=== PATIENT | female | born 1985 | race Two or more races ===

== ENCOUNTER → 2023-07-24 15:04 | Outpatient (BNVA) | payer OTHER, SELFPAY | PROVIDERS: PCP Internal Medicine; Visit Provider Physician Assistant Surgical ==

== ENCOUNTER 2023-09-12 08:12 | Outpatient (AMB) | payer OTHER, SELFPAY ==
[2023-09-12 14:01] VITALS: BMI 42.6
--- NOTE | 2023-09-12 14:01 | MHC.OFFVISWM ---
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*: Details: Start time: 1.50pm, End time: 2.45pm ?I spent 50 minutes speaking with the patient on the phone plus an additional 5 minutes reviewing and updating records for a total of 55 minutes HPI Comments Details: Previous weight loss efforts: self diets and exercise Business days: 4.30am-9pm, weekends: 9am-9pm Breakfast: skips Lunch: 11.25am (rice and meat) Dinner: 5pm (same as above, or fast food) Snacks: 7-8pm (cookie) Exercise: none Fluids: Coffee (1 cup/day with milk and sugar), Tea: a few days per week, soda: Regular Coca cola daily, juice: none, ETOH: 3-4/wk (Whiskey x2 or beer x6) PFSH Medical History (Updated 09/12/23 @ 14:08 by David Michelle MD) Hypothyroidism Morbid obesity Telehealth Telehealth Telehealth Platform: Telephone Location of provider rendering services: practice address Location of patient: address on file Patient Identification confirmed using: Name, : Yes Telehealth method: voice only Patient verbally consented to treatment: Yes Patient verbally consented to billing insurance company: Yes Patient informed of any privacy concerns related to visit: Yes Minutes spent on Phone/Video with Pt.: 57 Assessment & Plan Assessment & Plan (1) Morbid obesity: Code(s): E66.01 - Morbid (severe) obesity due to excess calories Category: Medical Plan: 1.? Plan for lap sleeve gastrectomy. If diaphragmatic or ventral hernias are present at time of surgery, these will be repaired laparoscopically as well. Risks and complications were discussed in detail including possible conversion to an open procedure, anastomotic leak, bleeding requiring transfusion, small bowel obstruction, , DVT and pulmonary embolism, cardiac, or pulmonary complications, as fci complications such as anastomotic ulcer, insufficient weight loss and vitamin deficiencies. I emphasized the importance of close follow-up, adherence to instructions and good communication. 2. Nutritional counseling. A) Business days: Start with 2 CELEBRATE REBUILD protein ([facility]) shakes (ONE scoop EACH in 8oz low fat unsweetened almond milk each) at 6am-8am and 9am-11am, 2 protein bars (CELEBRATE protein bars, buy at [facility] [place]) at 12pm-2pm and 3pm-5pm, dinner at 6pm (10 forks of protein and 10 forks of salad/vegetables) AND HALF protein bar after dinner at 8pm-9pm. So you do 2 protein shakes, 2.5 protein bars and one meal per day. B) Off days: Start with 2 CELEBRATE REBUILD protein ([facility]) shakes (ONE scoop EACH in 8oz low fat unsweetened almond milk each) at 10am-12pm and 1pm-3pm, 1 protein bar (CELEBRATE protein bars, [email or web address]) at 4pm-6pm, dinner at 7pm (10 forks of protein and 10 forks of salad/vegetables). So you do 2 protein shakes, 1 protein bar and one meal per day. Meal to include lean meat (beef, fish, pork, turkey, chicken), or gibraltarian yogurt, or egg whites, or beans with a salad with olive oil and fruits (berries, pears, apples, kiwi). Avoid salt, breads, potatoes, rice, pasta, desserts. 3. Each shake would be drunk slowly, like coffee in a period of 2 hours. 4. Cut each bar in 4 pieces and eat each piece in 30min ?to make each bar last 2 hours. 5. I emphasized the importance of measuring accurately the food portion and measure it when serving the food in plate 6. The meal portions include 10 full-size forks of meat and 10 full-size forks of salad. You always eat the meat portion but you can replace up to 5 forks for salad/vegetables with rice, potatoes or pasta, or a fruit ?if you like. The less you do it the better weight loss will be. 7. One full-size fork is what it can be scooped on the fork without falling aside and not what can be bit with the fork. Use regular forks like those you find in a typical restaurant. 8.? Please send me weight measurements as soon as possible and then once a week. Always include your diet and exercise plan. 9. Start walking outside daily, tracking calories with a goal of 300 calories per day, daily. Goal is to burn 2000 calories per week on exercise, which means either 300 calories daily, or 400 calories 5 days per week, or 500 calories 4 days per week, or 650 calories 3 days per week. 10. The best choice would be to purchase a stationary bike, elliptical or treadmill at home that can track calories. Let me know if you do so I can give you an exercise plan. 11.?It is important of avoiding and for at least 18 months postoperatively and has been discussed at the infosession. 12. Goal is to lose at least 1.5-2lbs per week 13. Goal to lose 10% of your weight before surgery, which is about 25lbs. Ultimate weight goal: 223lbs before surgery 14. Please follow the diet plan exactly without any change. If you don't like something about the plan or you feel hungry you need to communicate with me so I can help you revise the plan. You should not change the plan yourself. Orders: Orders H Pylori Breath Test Today E03.9 - Hypothyroidism, unspecified, E66.01 - Morbid (severe) obesity due to excess calories, F41.9 - Anxiety disorder, unspecified Lipid Panel Today E03.9 - Hypothyroidism, unspecified, E66.01 - Morbid (severe) obesity due to excess calories, F41.9 - Anxiety disorder, unspecified IRON PROFILE Today E03.9 - Hypothyroidism, unspecified, E66.01 - Morbid (severe) obesity due to excess calories, F41.9 - Anxiety disorder, unspecified Comprehensive Met. Panel Today E03.9 - Hypothyroidism, unspecified, E66.01 - Morbid (severe) obesity due to excess calories, F41.9 - Anxiety disorder, unspecified Zinc Today E03.9 - Hypothyroidism, unspecified, E66.01 - Morbid (severe) obesity due to excess calories, F41.9 - Anxiety disorder, unspecified C Reactive Protein Today E03.9 - Hypothyroidism, unspecified, E66.01 - Morbid (severe) obesity due to excess calories, F41.9 - Anxiety disorder, unspecified Vitamin A Today E03.9 - Hypothyroidism, unspecified, E66.01 - Morbid (severe) obesity due to excess calories, F41.9 - Anxiety disorder, unspecified TSH reflex Free T4 Today E03.9 - Hypothyroidism, unspecified, E66.01 - Morbid (severe) obesity due to excess calories, F41.9 - Anxiety disorder, unspecified Vitamin D 25-OH Total Today E03.9 - Hypothyroidism, unspecified, E66.01 - Morbid (severe) obesity due to excess calories, F41.9 - Anxiety disorder, unspecified US abdomen comp w elastography Today E03.9 - Hypothyroidism, unspecified, E66.01 - Morbid (severe) obesity due to excess calories, F41.9 - Anxiety disorder, unspecified FL upper GI w air Today E03.9 - Hypothyroidism, unspecified, E66.01 - Morbid (severe) obesity due to excess calories, F41.9 - Anxiety disorder, unspecified Insulin Today E03.9 - Hypothyroidism, unspecified, E66.01 - Morbid (severe) obesity due to excess calories, F41.9 - Anxiety disorder, unspecified Hemoglobin A1c Today E03.9 - Hypothyroidism, unspecified, E66.01 - Morbid (severe) obesity due to excess calories, F41.9 - Anxiety disorder, unspecified Complete Blood Count Auto Diff Today E03.9 - Hypothyroidism, unspecified, E66.01 - Morbid (severe) obesity due to excess calories, F41.9 - Anxiety disorder, unspecified Vitamin B12 and Folate Today E03.9 - Hypothyroidism, unspecified, E66.01 - Morbid (severe) obesity due to excess calories, F41.9 - Anxiety disorder, unspecified Vitamin B1 Today E03.9 - Hypothyroidism, unspecified, E66.01 - Morbid (severe) obesity due to excess calories, F41.9 - Anxiety disorder, unspecified Ferritin Today E03.9 - Hypothyroidism, unspecified, E66.01 - Morbid (severe) obesity due to excess calories, F41.9 - Anxiety disorder, unspecified XR chest 2V Today E03.9 - Hypothyroidism, unspecified, E66.01 - Morbid (severe) obesity due to excess calories, F41.9 - Anxiety disorder, unspecified ECG 12 lead EKG Today E03.9 - Hypothyroidism, unspecified, E66.01 - Morbid (severe) obesity due to excess calories, F41.9 - Anxiety disorder, unspecified Referrals Behavioral Health Referral E03.9 - Hypothyroidism, unspecified, E66.01 - Morbid (severe) obesity due to excess calories, F41.9 - Anxiety disorder, unspecified
== END 2023-09-12 14:46 | disposition home or self-care (01) ==
LOC: HO.HBS 08:12
PROVIDERS: PCP Internal Medicine; Visit Provider Surgery
DX: E66.01 Morbid (severe) obesity due to excess calories (principal)
CPT/HCPCS: 99214

== ENCOUNTER → 2023-09-12 08:12 | Outpatient (BNVA) | payer OTHER, SELFPAY | PROVIDERS: PCP Internal Medicine; Visit Provider Surgery ==

== ENCOUNTER 2023-09-15 07:00 | Outpatient (REF) | payer OTHER, SELFPAY ==
--- NOTE | ~2023-09-15 | XR_ITS ---
EXAMINATION: XR CHEST CLINICAL INFORMATION: Moderate severe obesity due to excess calories. COMPARISON: None available. TECHNIQUE: 2 views of the chest were obtained. FINDINGS: There is no gross pneumothorax. Cardiac silhouette borderline enlarged. No pleural effusion. No focal consolidation to suggest pneumonia. XR/XR chest 2V IMPRESSION: Cardiac silhouette borderline enlarged.
[2023-09-15 07:18] LABS: MANUAL DIFF FLAG NO
--- NOTE | 2023-09-15 07:41 | ECG_ITS ---
Test Reason : obesity Blood Pressure : / mmHG Vent. Rate : 062 BPM Atrial Rate : 062 BPM P-R Int : 148 ms QRS Dur : 072 ms QT Int : 408 ms P-R-T Axes : 043 022 022 degrees QTc Int : 414 ms Normal sinus rhythm with sinus arrhythmia Low voltage QRS Borderline ECG No previous ECGs available Referred By: David Michelle Electronically Signed By:REI MOORE MD
[2023-09-15 07:50] LABS: Basophils Percent Auto 0.6 % (0-2); Eosinophils Absolute Auto 0.2 X10*3/uL (0.0-0.4); Hematocrit 36.1 % (37.0-47.0); Hemoglobin 12.3 g/dl (12.0-16.0); Imm Gran Abs Auto 0.01 X10*3/uL (0.00-0.03); Imm Gran Pct Auto 0.2 % (0.0-0.4); Lymphocytes Absolute Auto 2.1 X10*3/uL (1.2-4.9); Lymphocytes Percent Auto 41.7 % (20-40); Mean Corpuscular HGB Conc 34.1 g/dl (31.0-35.0); Mean Corpuscular Hemoglobin 29.5 pg (27.0-33.0); Mean Corpuscular Volume 86.6 fL (80.0-98.0); Mean Platelet Volume 9.5 fL (9.4-12.3); Monocytes Absolute Auto 0.4 X10*3/uL (0.1-1.2); Monocytes Percent Auto 8.3 % (2-11); Neutrophils Absolute Auto 2.3 x10*3/uL (2.0-8.3); Neutrophils Percent Auto 46.2 % (45-73); Platelet Count 254 X10*3/uL (160-400); Red Blood Count 4.17 X10*6/uL (4.20-5.50); Red Cell Distribution Width 12.3 % (11.0-16.0); White Blood Count 4.9 X10*3/uL (4.8-10.8)
[2023-09-15 07:56] LABS: Estimated Average Glucose 103 mg/dL; Hemoglobin A1c % 5.2 % (<6.0)
[2023-09-15 08:29] LABS: Alanine Aminotransferase 13 U/L (0-31); Albumin Level 3.8 g/dL (3.5-5.0); Alkaline Phosphatase 71 U/L (39-117); Anion Gap 13 (12-20); Aspartate Amino Transferase 19 U/L (5-31); Bilirubin Total 0.5 mg/dL (0.0-1.0); Blood Urea Nitrogen 10 mg/dL (9-16); C Reactive Protein 0.77 mg/dL (< or = 0.50); Carbon Dioxide 25 mmol/L (22-29); Chloride 104 mmol/L (96-108); Cholesterol 151 mg/dL (<200); Estimated Glomerular Filt Rate > 60; Glucose Random 102 mg/dL (60-115); HDL Cholesterol 46 mg/dL (>40); Iron 136 mcg/dL (30-160); LDL Cholesterol Calculated 86 mg/dL (<100); Percent Iron Saturation 47 % (15-50); Potassium 3.2 mmol/L (3.3-5.1); Sodium 139 mmol/L (135-145); Total Iron Binding Capacity 287 mcg/dL (228-428); Total Protein 7.5 g/dL (6.5-8.0); Triglycerides 96 mg/dL (<150); Unsaturated Iron Binding 151 ug/dL
[2023-09-15 08:52] LABS: Ferritin 119 ng/mL (10-122); Insulin 6 uU/mL (2-29); TSH reflex Free T4 3.35 uIU/mL (0.32-4.0); Vitamin D 25-OH Total 23.5 ng/mL (>30)
[2023-09-15 08:56] LABS: Folate 10.1 ng/mL (> or = 4.0); Vitamin B12 452 pg/mL (200-900)
[2023-09-18 19:19] LABS: Vitamin A 35 mcg/dL (38-98)
[2023-09-19 01:38] LABS: Zinc 63 mcg/dL (60-130)
[2023-09-20 11:48] LABS: Vitamin B1 7 nmol/L (8-30)
== END 2023-09-15 07:01 | disposition home or self-care (01) ==
LOC: HO.XRAY 07:00
PROVIDERS: PCP Internal Medicine; Visit Provider Surgery
DX: E66.01 Morbid (severe) obesity due to excess calories (principal); E03.9 Hypothyroidism, unspecified; F41.9 Anxiety disorder, unspecified
CPT/HCPCS: 36415; 71046; 80053; 80061; 82306; 82607; 82728; 82746; 83036; 83525; 83540; 84425; 84443; 84590; 84630; 85025; 86140; 93005

== ENCOUNTER → 2023-09-15 07:41 | Outpatient (BNV) | payer OTHER, SELFPAY | PROVIDERS: PCP Internal Medicine; Visit Provider Internal Medicine Cardiovascular Disease | DX: R94.31 Abnormal electrocardiogram [ECG] [EKG] (principal) | CPT/HCPCS: 93010 ==

== ENCOUNTER 2023-10-02 10:24 | Outpatient (REF) | payer OTHER, SELFPAY ==
--- NOTE | ~2023-10-02 | US_ITS ---
EXAMINATION: US COMPLETE ABDOMEN WITH LIVER ELASTOGRAPHY CLINICAL INFORMATION: Morbid obesity. COMPARISON: None available. TECHNIQUE: Real-time imaging of the abdominal viscera. Noninvasive ultrasound liver fibrosis assessment is performed using Sarthak ElastPQ point quantification shear wave elastography (2D-SWE) with a C5-2 MHz transducer. Multiple elastography samples are obtained. FINDINGS: PANCREAS: Normal. The visualized pancreatic head and body are normal in appearance. The remainder of the pancreas is obscured from visualization by the overlying bowel gas. ABDOMINAL AORTA: The proximal, middle, and distal aortic segments are normal in caliber. INFERIOR VENA CAVA: Visualized portions are normal. LIVER: Normal. The liver demonstrates normal size, contour and echogenicity. No focal lesion or intrahepatic biliary duct dilatation. The right lobe measures 16.3 cm in length. The left lobe measures 11.1 cm in length. Portal flow is towards the liver (hepatopetal). Shear wave liver elastography median stiffness is 1.30 m/s (reference: normal median stiffness is 1.3 m/s or less). IQR/median stiffness to assess sampling precision is 0.09 (reference: good quality data set is IQR/median stiffness of 0.15 or less). GALLBLADDER: Normal. The gallbladder is physiologically distended without evidence of stones, sludge, polyps, wall thickening or pericholecystic fluid. COMMON BILE DUCT: Normal in caliber measuring 0.3 cm in diameter. RIGHT KIDNEY: Normal. No hydronephrosis. No renal calculi or focal parenchymal lesions. The kidney measures 12.0 cm in maximum dimension. LEFT KIDNEY: Normal. No hydronephrosis. No renal calculi or focal parenchymal lesions. The kidney measures 9.9 cm in maximum dimension. SPLEEN: Normal. The spleen measures 9.7 cm in maximum dimension. FREE FLUID: None. US/US abdomen comp w elastography IMPRESSION: Liver elastography: Measurements are consistent with a high probability of normal liver stiffness. REFERENCE: Society of Radiologists in Ultrasound Liver Stiffness Thresholds (2020): LIVER STIFFNESS THRESHOLDS: *Liver Stiffness equal or less than 1.3 m/s: High probability of being normal. *Liver Stiffness less than 1.7 m/s: In the absence of other known clinical signs, rules out compensated advanced chronic liver disease. *Liver Stiffness 1.7-2.1 m/s: Suggestive of compensated advanced chronic liver disease but need further test for confirmation. *Liver Stiffness over 2.1 m/s: Rules in compensated advanced chronic liver disease. *Liver Stiffness over 2.4 m/s: Suggestive of clinically significant portal hypertension. QUALITY OF DATA SET: *IQR/Median value equal or less than 0.15 implies a quality data set. *IQR/Median value over 0.15 implies a poor quality data set. SIGNIFICANT CHANGE FROM PRIOR EXAM: Significant change if liver stiffness measurement is 10% or greater from prior exam. OTHER CONSIDERATIONS: The stage of liver fibrosis may be overestimated in the setting of acute hepatitis, liver inflammation, elevated liver function tests, hepatic vascular congestion, obstructive cholestasis, non-fasting state, and infiltrative diseases such as amyloidosis and lymphoma. In some patients with NAFLD, the liver stiffness thresholds for compensated advanced chronic liver disease may be lower. In causes other than viral hepatitis and NAFLD, liver stiffness thresholds are not well established.
== END 2023-10-02 10:25 | disposition home or self-care (01) ==
LOC: HO.US 10:24
PROVIDERS: PCP Internal Medicine; Visit Provider Surgery
DX: E66.01 Morbid (severe) obesity due to excess calories (principal); E03.9 Hypothyroidism, unspecified; F41.9 Anxiety disorder, unspecified
CPT/HCPCS: 76700; 76981

== ENCOUNTER 2023-10-08 13:00 | Outpatient (AMB) | payer OTHER, SELFPAY ==
--- NOTE | 2023-10-08 13:03 | MHC.WMTHER ---
Intake Intake Visit Reasons: VIDEO Intake Allergies No Known Allergies Allergy (Verified 09/12/23 14:04) [facility] Medical History (Updated 09/27/23 @ 10:21 by David Michelle MD) Hypothyroidism Morbid obesity Behavioral Health Assessment Weight Management Therapy Therapy Notes Details Pt is a 38 year old , Maori speaking female who presents for assessment for the surgical Weight management program. PT reports she has medical issues affected by her weight and is looking for a long-term solution for her obesity and life style issues. PT reported been in counseling briefly a year ago due to sx of anxiety, however symptoms resolved after couple meetings with therapist leading her to stop services. PT denies any past Hx of crisis or hospitalization and also denies any risk concerns around self-harm/other-harm. There is no major concerns around substance use besides social alcohol use. There are minimal concerns around stress/emotional-eating, and scores from BES suggest minimal risk for binge eating behavior. PHQ- scores also showed no active symptoms/concerns with depression. Mental status exam is withing normal limits, suggesting person's functioning is not impaired. At this time patient is cleared from the behavioral health standpoint. She will be seen again 4-8 weeks post-op for support. Presenting Concerns Referral Source Referred to the program by friends. She sees Dr. Alejo who referred her for assessment. Reason for referral Completion of behavioral health assessment as part of process for weight-loss surgery. Precipitating Event Obesity, thyroid issues. Living Situation Current Living Situation Rent At risk of losing current housing? No Satisfied with current living situation? Yes Comments Pt lives with a friend. Food/Weight/Diet Expectations of change The initial goal is to lose 10% of her weight before surgery, which is about 25 lbs. Ultimate weight goal: 223lbs before surgery. She wants to be at a healthy weight and have an active lifestyle. History/Relationship with food PT reports she likes to eat, and enjoys eating out. At times she finds herself praising her with food or eating more when stressed. For example if she's sad she might cook her favorite food to uplift her mood. Example of meals before starting the program: Breakfast: skip or coffee. Sometimes chips. Lunch: rice with meat. PM snack: none Dinner: @6pm. Take out (burger kind, [place], Etc) or homemade, -style meals. late snack: candy, chocolate. History/Relationship with weight Pt reports she was always in a healthy weight, never obese or overweight in childhood. In the last 10 years, 170Lbs was the lowest weight, and 256 Lbs was her highest weight. History/Relationship with dieting She has tried multiple diets, visits, and treatments with a fuel cell assembler. Tries diets for about 3 months at the time but ends up gaining all weight back once is back to old habits. Had a gym membership 5 years ago and just started using it since started the program. Binge Eating Do you frequently eat large amounts of food in short periods of time, not feeling physically hungry? No Do you feel out of control when you eat a large amount of food in a short period of time? Yes Do you eat large amounts of food rapidly and typically alone? Yes Night Eating Do you wake up at least once during the night to eat? No If you wake up in the night, do you find that it is necessary to eat something in order to fall back asleep? No Do you have little or no appetite in the morning and feel very hungry in the evening, often overeating between dinner and when you go to bed? Yes Social History Family history and relationship PT was in a long-term relationship for 13 years. Currently single. Her parents are alive, Has 2 siblings. PT reports she is close to her family even though most of her family lives in [place]. 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 Developmental history and status None reported. Social support Family and close friends. Community support None reported. Congregational/Spirituality None reported Cultural/Ethnic information PT was born and raised in [place]. Maori speaking. PT has been in [place] for the past 12 years. Legal Involvement and History Current or historical involvement with the legal system? None reported. Education Highest grade completed Did not finish 12, and got her GED later. Preferred learning style Learn by doing and Visual Currently enrolled in educational program? No Interested in further educational program? No Educational Interests/Skills would like to get a cosmetology license and become a medtronics technician. 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 ) Wants help to find employment? No Meaningful activities go out with friends, watch Tv. Financial Situation Describe current financial situation Comfortable Financial assistance? None Service Service? No Mental Health and Addiction Treatment Current/Past substance abuse? Yes Comments -Haven't drink in 2 months. Before that was drinking every weekend (Frid or Sat) when going out after work with friends. Was drinking 3 drinks of whisky on the rocks and 1 beer. - Smoke: never - Denies edibles or any other cannabis product. Current/Past addictive behavior concerns? No (Uses scratch tickets ocasionally.) Psychiatric history 1 year ago she went to counseling for a couple of weeks due to symptoms of anxiety (nausea, dizziness, thoughts around , desperation, overthinking, mild panic-like Sx). She stopped services as she was doing better. Her PCP prescribes her Hydroxyzine 10Ms at bedtime as needed for anxiety. She has not used the med in about 6 months. Denies ever being in crisis and/or inpatient for BH, no history of current SI/SA/HI/CUADRA reported. Also, denies any safety concerns around self-harm or other harm. Medical and Physical Health Summary Additional Medical History not covered in history None Sexual History concerns None Physical exam in the last year? Yes Pain Screening Current pain? No Pain in the last few months? No Medications Is the patient compliant with medications? Yes Does the patient have Moreno Guardian in place? Not applicable Does the patient use complimentary health approaches? No Trauma/Abuse History History of trauma? No Questionnaires PHQ-9 Over the last 2 weeks, how often have you been bothered by any of the following problems? 1. Little interest or pleasure in doing things: not at all 2. Feeling down, depressed, or hopeless: not at all 3. Trouble falling or staying asleep, or sleeping too much: not at all 4. Feeling tired or having little energy: several days 5. Poor appetite or overeating: not at all 6. Feeling bad about yourself - or that you are a failure or have let yourself or your family down: not at all 7. Trouble concentrating on things, such as reading the newspaper or watching television: not at all 8. Moving or speaking so slowly that other people could have noticed. Or the opposite - being so fidgety or restless that you have been moving around a lot more than usual: not at all 9. Thoughts that you would be better off or of hurting yourself in some way: not at all Total score: 1 Depression Screening Interpretation: Negative Depression Screening Done: Yes 81321 - PHQ-9 Billing: Yes (Previous done at initial visit - scored 6. ) Source: Developed by Drs. Jordan Angel, Nitza Macdonald, Felton Govea and colleagues, with an educational endy from [employer]. Binge Eating Scale Group 1 A. I don't feel self-conscious about my wt. or body size when I'm with others. B. I feel concerned about how I look to others, but it normally does not make me fell disappointed with myself C. I do get self-conscious about my appearance and wt. which makes me feel disappointed in myself. D. I feel very self-conscious about my wt. and frequently I feel intense shame and disgust for myself. I try to avoid social contacts because of my self-consciousness. Response Group 1: C Group 2 A. I don't have any difficulty eating slowly in the proper manner. B. Although I seem to gobble down foods, I don't end up feeling stuffed because of eating to much. C. At times, I tend to eat quickly and then, I feel uncomfortably full afterwards. D. I have the habit of bolting down my food, without really chewing it. When this happens I usually feel uncomfortably stuffed because I've eaten to much. Response Group 2: C Group 3 A. I feel capable to control my eating urges when I want to. B. I feel like I have failed to control my eating more than the average person. C. I feel utterly helpless when it comes to feeling in control of my eating urges. D. Because I feel so helpless about controlling my eating I have become very desperate about trying to get control. Response Group 3: A Group 4 A. I don't have the habit of eating when I'm bored. B. I sometimes eat when I'm bored, but often I'm able to get busy and get my mind off food. C. I have a regular habit of eating when I'm bored, but occasionally, I can use some other activity to get my mind off eating. D. I have a strong habit of eating when I'm bored. Nothing seems to help me breath the habit. Response Group 4: A Group 5 A. I'm usually physically hungry when I eat something. B. Occasionally, I eat something on impulse even though I really am not hungry. C. I have the regular habit of eating foods, that I might not really enjoy, to satisfy a hungry feeling even though physically, I don't need the food. D. Although I'm not physically hungry, I get a hungry feeling in my mouth that only seems to be satisfied when I eat a food, like sandwich, that fills my mouth. Sometimes, when I eat the food to satisfy my mouth hunger, I then spit the food out so I won't gain weight. Response Group 5: B Group 6 A. I don't feel any guilt or self-hate after I overeat. B. After I overeat, occasionally I feel guilt or self-hate. C. Almost all the time I experience strong guilt or self-hate after I overeat. Response Group 6: B Group 7 A. I don't lose total control of my eating when dieting even after periods when I overeat. B. Sometimes when I eat a forbidden food on a diet, I feel like I blew it and eat even more. C. Frequently, I have the habit of saying to myself, I've blown it now, why not go all the way, when I overeat on a diet. When that happens I eat more. D. I have a regular habit of starting a strict diets for myself but I break the diets by going on an eating binge. My life seems to be either a feast or famine. Response Group 7: A Group 8 A. I rarely eat so much food that I feel uncomfortably stuffed afterwards. B. Usually about once a month, I each such a quantity of food, I end up feeling very stuffed. C. I have regular periods during the month when I eat large amounts of food, either at mealtime or at snacks. D. I eat so much food that I regularly feel quite uncomfortable after eating and sometimes a bit nauseous. Response Group 8: C Group 9 A. My level of calorie intake does not go up very high or go down very low on a regular basis. B. Sometimes after I overeat, I will try to reduce my caloric intake to almost nothing to compensate for the excess calories I've eaten. C. I have a regular habit of overeating during the night. It seems that my routine is not to be hungry in the morning but overeat in the evening. D. In my adult years, I have had week-long periods where I practically starve myself. This follows periods when I overeat. It seems I live a life of either feast or famine. Response Group 9: A Group 10 A. I usually am able to stop eating when I want to. I know when enough is enough. B. Every so often, I experience a compulsion to eat which I can't seem to control. C. Frequently, I experience strong urges to eat which I seem unable to control, but at other times I can control my eating urges. D. I feel incapable of controlling urges to eat. I have a fear of not being able to stop eating voluntarily. Response Group 10: C Group 11 A. I don't have any problem stopping eating when I feel full. B. I usually can stop eating when I feel full but occasionally overeat leaving me feeling uncomfortably stuffed. C. I have a problem stopping eating once I start and usually I feel uncomfortably stuffed after I eat a meal. D. Because I have a problem not being able to stop eating when I want, I sometimes have to induce vomiting to relieve my stuffed feeling. Response Group 11: B Group 12 A. I seem to eat just as much when I'm with others, Family social gatherings as when I'm by myself. B. Sometimes, when I'm with other persons, I don't eat as much as I want to eat because I'm self-conscious about my eating. C. Frequently, I eat only a small amount of food when others are present, because I'm very embarrassed about my eating. D. I feel so ashamed about overeating that I pick times to overeat when I know no one will see me. I feel like a closet eater. Response Group 12: A Group 13 A. I eat three meals a day with only an occasional between meal snack. B. I eat 3 meals a day, but I also normally snack between meals. C. When I am snacking heavily, I get in the habit of skipping regular meals. D. There are regular periods when I seem to be continually eating, with no planned meals. Response Group 13: C Group 14 A. I don't think much about trying to control unwanted eating urges. B. At least some of the time, I feel my thoughts are pre-occupied with trying to control my eating urges. C. I feel that frequently I spend much time thinking about how much I ate or about trying not to eat anymore. D. It seems to me that most of my waking hours are pre-occupied by thoughts about eating or not eating. I feel like I'm constantly struggling not to eat. Response Group 14: A Group 15 A. I don't think about food a great deal. B. I have strong craving for food but they last only for brief periods of time. C. I have days when I can't seem to think about anything else but food. D. Most of my days seem to be pre-occupied with thoughts about food. I feel like I live to eat. Response Group 15: A Group 16 A. I usually know whether or not I'm physically hungry. I take the right portion of food to satisfy me. B. Occasionally, I feel uncertain about knowing whether or not I'm physically hungry. A these times it's hard to know how much food I should take to satisfy me. C. Even though I might know how many calories I should eat, I don't have any idea what is a normal amount of food for me. 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 The patient has been cleared from BH standpoint and will not require a follow up before surgery. Clinician has advised client about available resources if ever in need to access additional support and has encourage client to participate in post-op groups. Next encounter: 4-8 weeks post-op. Telehealth Telehealth Telehealth Platform: [facility] Location of provider rendering services: other Location of patient: address on file Patient Identification confirmed using: Name, : Yes Telehealth method: voice only Patient verbally consented to treatment: Yes Patient verbally consented to billing insurance company: Yes Patient informed of any privacy concerns related to visit: No Minutes spent on Phone/Video with Pt.: 60 Coding Level of Care Code New Pt Tele Psytx >53 mins ([id number]) Patient Type New Diagnoses Adjustment disorder with anxiety F43.22 Time Spent (min) 60
== END 2023-10-08 13:54 | disposition home or self-care (01) ==
LOC: HO.HBST 13:39
PROVIDERS: PCP Internal Medicine; Visit Provider Counselor Mental Health
DX: F43.22 Adjustment disorder with anxiety (principal)
CPT/HCPCS: 90837

== ENCOUNTER → 2023-10-08 13:00 | Outpatient (BNVA) | payer OTHER, SELFPAY | PROVIDERS: PCP Internal Medicine; Visit Provider Counselor Mental Health ==

== ENCOUNTER 2023-10-22 08:48 | Day surgery (SDC) | payer OTHER, SELFPAY ==
[2023-10-17 14:50] VITALS: BMI 42.6
--- NOTE | 2023-10-20 12:24 | HO.ANESPROP2 ---
Documented by User: Marialuisa Miranda NP 10/20/23 12:24 HPI - Anesthesia Eval Consult details Narrative: 38yo F for Upper Endoscopy PMFSH Active Problems Active Problems: All Active Problems Vitamin B1 deficiency (Acute) Cardiomegaly (Acute) Vitamin A deficiency (Acute) Vitamin D deficiency (Acute) Hypothyroidism (Acute) Morbid obesity (Acute) Past Medical History Medical History Hypothyroidism Morbid obesity Surgical History Surgical History Surgical history unknown Social History Social History Patient Tobacco Use Status: Never used Tobacco Use of substances other than those prescribed or required for medical reasons: No Are you DNR?: No Advance Directives: No Advance Directives Information Provided: Yes Meds Allergies Allergy/AdvReac Type Severity Reaction Status Date / Time No Known Allergies Allergy Verified 10/22/23 09:45 Home Medications ?Medication ?Instructions ?Recorded ?Confirmed ?Last Taken ?Type hydroxyzine HCl 10 mg tablet 10 mg PO BEDTIME 07/25/23 10/17/23 Unknown History levothyroxine 125 mcg tablet 125 mcg PO DAILY 07/25/23 10/22/23 10/21/23 History Exam Height,Weight and Vital Signs: Height 5 ft 4 in Weight 112.491 kg Assessment and Plan Assessment Anesthesia Assessment: Chart Reviewed Documented by User: Nu Gregorio MD 10/22/23 12:00 PMF Past Medical History Medical History Hypothyroidism Morbid obesity Surgical History Surgical History Surgical history unknown History of Problems with Anesthesia: No Social History Social History Patient Tobacco Use Status: Never used Tobacco Use of substances other than those prescribed or required for medical reasons: No Are you DNR?: No Advance Directives: No Advance Directives Information Provided: Yes Meds Allergies Allergy/AdvReac Type Severity Reaction Status Date / Time No Known Allergies Allergy Verified 10/22/23 09:45 Home Medications ?Medication ?Instructions ?Recorded ?Confirmed ?Last Taken ?Type hydroxyzine HCl 10 mg tablet 10 mg PO BEDTIME 07/25/23 10/17/23 Unknown History levothyroxine 125 mcg tablet 125 mcg PO DAILY 07/25/23 10/22/23 10/21/23 History Exam Airway Mallampati Class: II TM Dist: >3cm Neck ROM: Full Loose/Missing/Broken Teeth: No Heart: RRR Lungs: CTA Assessment and Plan Assessment Anesthesia Assessment: Anesthesia Plan Discussed Final Anesthetic Review History of Problems with Anesthesia: No NPO: Yes ASA Class: III Final Preanesthetic Review: Meds/Allgs Chart Reviewed, Consent Obtained/Reviewed and Anes Risks/Benef Reviewed Patient Risk: Intermediate Procedure Risk: Intermediate Anesthetic Plan Anesthetic Plan: MAC: Disposition: Standard PACU
[2023-10-22 10:17] VITALS: BP 140/74; PULSE 65; RESP 16; TEMP 36.4; O2SAT 99
[2023-10-22] MEDS: Lactated Ringers 1,000 ML 80 ML IVCONT (10:18)
[2023-10-22 10:26] LABS: UPreg QC Valid YES; Urine Pregnancy NEGATIVE (NEGATIVE)
--- NOTE | 2023-10-22 10:34 | P.HPSUR_ITS ---
Pre-Procedural Eval Section A - 24 Hr Update-Section A only Date of Service: 10/22/23 The patient is an INPATIENT: No The patient has been examined within 24 hours of the surgical procedure. The History & Physical has been completed within 30 days and I have reviewed it.: Yes Section B - Complete if H&P > 30 days Chief Complaint: obesity Details of Present Illness: GERD Relevant Family History (Specify if Yes): No Relevant Social History: None Present Medications: None Medical History: No relevant PMH History of Previous Operations: No relevant previous surgery Allergies: Allergies Allergy/AdvReac Type Severity Reaction Status Date / Time No Known Allergies Allergy Verified 10/22/23 09:45 Review of Systems Sugical H&P ROS: Negative: Constitution, Cardiovascular, Respiratory, N eurological, Psychiatric, Hem-Onc, Allergic/Immunologic, Gastrointestinal, Genitourinary, Musculoskeletal, Integumentary, Endocrine and Eyes/Ears/Nose/Throat Exam Surgical H&P Exam: Normal: HEENT, Normal: Heart, Normal: Lungs, Normal: Extremities, Normal: Abdomen, Normal: Skin and Normal: Neurological Plan Diagnosis/Plan: Unchanged (EGD to assess etiology of GERD. Risks of bleeding and perforation were discussed with the patient and he is in agreement with the plan.) I have reviewed the history and physical and performed a pertinent physical examination on my patient. No changes have occurred unless specified. Time Spent With Patient Time: Total time managing care of this patient today ____ minutes.
--- NOTE | 2023-10-22 10:35 | P.BOP_ITS ---
Brief Operative Note Date of Service: 10/22/23 Pre-op diagnosis: GERD Post-op diagnosis: same Procedure: PROCEDURE DATE: 10/22/23 PREOPERATIVE DIAGNOSIS: GERD POSTOPERATIVE DIAGNOSIS: ?Same as above. 1) Normal endoscopy PROCEDURE: Bdwmldjn-ohmjbe-ynwdwgqkgnol with biopsies Surgeon: Tayler Michelle M.D.. Ph.D. Professor Of Medicine: None ? Anesthesia: IV sedation Estimated blood loss: ?Minimal FINDINGS AND PROCEDURE: ? OPERATIVE INDICATIONS: ?The patient is a 38 year old female known to me who is interested in bariatric surgery. The patient has GERD. Based on this information I recommended an upper endoscopy to evaluate the patient's symptoms. Risks and complications of the surgery were discussed with the patient in advance particularly the possibility of perforation or bleeding that may require surgical intervention. The patient understood the risks and was in agreement with the plan. ? PROCEDURE: After informed consent was obtained by the patient, the patient was ?transferred to the Operating Room and was placed in the supine position.? After successful induction of IV sedation, a mouth block was inserted and the patient was placed in the left lateral decubitus position. An upper endoscopy was performed next, the oropharynx and esophagus appeared within the normal limits. There was no hiatal hernia. The z-line was smooth. Two biopsies were obtained from the distal esophagus 2-3 cm proximal to the GE junction and two additional biopsies from the GE junction. The stomach was entered and it appeared to be of normal size. There was no gastritis. There was no stricture or ulcer. A biopsy was obtained from the gastric fundus and antrum. No significant bleeding was noted from any of the biopsy sites. Retroflexion of the scope revealed a normal GE junction. The scope was then advanced into the duodenum which appeared to be normal as well. At that point the duodenum ?and the stomach were decompressed and the scope was withdrawn from the patient's mouth. The patient extubated and was transferred in stable condition to the Recovery Room for further care. I was present and performed all steps of the procedure. There were no residents to assist with this case. Baljinder Michelle M.D., Ph.D. Surgeon: David Michelle MD Anesthesia: MAC Was an Professor Of Medicine used for this Procedure?: No Estimated blood loss (mL): 0 IV fluids (mL): 400 Urine output (mL): 0 (No Hughes to record output) Pathology: other (1) antrum x1, 2) fundus x1, 3) GE junction x2, 4) distal esophagus x2) Condition: stable Disposition: PACU
[2023-10-22 11:51] VITALS: BP 116/40; PULSE 103; RESP 18; TEMP 36.9; O2SAT 99
[2023-10-22 12:06] VITALS: BP 126/76; PULSE 77; RESP 16; TEMP 36.6; O2SAT 95
== END 2023-10-22 12:45 | disposition home or self-care (01) ==
PROVIDERS: Nurse Practitioner; PCP Internal Medicine; Visit Provider Surgery
PROC: 0DJ08ZZ Inspection of Upper Intestinal Tract, Via Natural or Artificial Opening Endoscopic (ICD-10-PCS; CPT 43235; principal; 2023-10-22 11:00)
DX: K21.9 Gastro-esophageal reflux disease without esophagitis (principal); E66.01 Morbid (severe) obesity due to excess calories; Z68.41 Body mass index [BMI] 40.0-44.9, adult; E03.9 Hypothyroidism, unspecified; F41.9 Anxiety disorder, unspecified; Z79.899 Other long term (current) drug therapy
CPT/HCPCS: 43239; 81025; 88305; 88313; 88342; J2704

== ENCOUNTER → 2023-10-22 08:48 | Outpatient (BNV) | payer OTHER, SELFPAY | PROVIDERS: PCP Internal Medicine; Visit Provider Surgery | DX: K21.9 Gastro-esophageal reflux disease without esophagitis (principal) | CPT/HCPCS: 43239 ==

== ENCOUNTER 2023-10-23 07:53 | Outpatient (REF) | payer OTHER, SELFPAY ==
--- NOTE | ~2023-10-23 | FL_ITS ---
EXAMINATION: XR FLUOROSCOPY UPPER GI WITH AIR CLINICAL INFORMATION: Preop evaluation prior to bariatric surgery COMPARISON: None TECHNIQUE: Fluoroscopic air contrast upper GI examination was performed utilizing standard techniques with thin and thick barium and effervescent granules. Numerous spot images were obtained. FINDINGS: Dual and single contrast images of the esophagus demonstrate normal caliber, contour, and mucosal pattern. There is mild cricopharyngeal achalasia present. No evidence of stricture, mass, or ulcerations identified. Esophageal peristalsis was moderately disorganized. No evidence of hiatus hernia identified. Significant gastroesophageal reflux is up to the thoracic inlet. Dual contrast and single contrast images of the stomach demonstrated normal contour and mucosal pattern without evidence of mass, ulceration, or other abnormality. Contrast freely passed into the gastric antrum and duodenal bulb without delay. Single and air-contrast images of the duodenal bulb demonstrate no abnormality. The duodenal sweep has a normal appearance, course, and mucosal fold appearance. The imaged proximal jejunum has a normal fold pattern and caliber. FLUOROSCOPY TIME: 3 minutes 49 seconds Number of Spot Images: 12 Number of Cine: 14 DOSE AREA PRODUCT: [id number] mgy-m2 (microgray-meter squared) FL/FL upper GI w air IMPRESSION: 1. Mild cricopharyngeal achalasia. 2. Moderately disorganized esophageal peristalsis. 3. Severe gastroesophageal reflux. This procedure was performed by Ronald Gant PA-C, and supervised by Dr. Albarran
== END 2023-10-23 07:54 | disposition home or self-care (01) ==
LOC: HO.XRAY 07:53
PROVIDERS: PCP Internal Medicine; Visit Provider Surgery
DX: E66.01 Morbid (severe) obesity due to excess calories (principal); E03.9 Hypothyroidism, unspecified; F41.9 Anxiety disorder, unspecified
CPT/HCPCS: 74246

== ENCOUNTER → 2023-10-23 07:54 | Outpatient (BNV) | payer OTHER, SELFPAY | PROVIDERS: PCP Internal Medicine; Visit Provider Physician Assistant Surgical | DX: E66.01 Morbid (severe) obesity due to excess calories (principal); Z01.818 Encounter for other preprocedural examination | CPT/HCPCS: 74246 ==

== ENCOUNTER → 2023-10-27 08:53 | Outpatient (REF) | payer OTHER, SELFPAY ==
--- NOTE | 2023-10-27 08:55 | CA_ITS ---
Transthoracic Echocardiogram Patient (Last, First, Middle): Jama Gardner, Gender: Female Date of : 1985 Age: 38 Procedure Date: 10/27/2023 Procedure Type: Transthoracic Echocardiogram Location: OP Height: 162. cm Weight: 99.79 kg BSA: 2.03 m2 Heart Rate: 56 bpm BP: 120 / 82 mmHg Freight Handler: DON Saunders MD: David Michelle MD Online Communications Manager: Dennis Smith MD Symptoms: I51.7 - Cardiomegaly Study Quality: Fair ECG Rhythm: Bradycardia Conclusions: - Normal study Findings Left Ventricle Normal left ventricular size, thickness, and systolic function. The visually estimated ejection fraction is between 55-60%. Spectral Doppler is indicative of a normal filling pattern. Right Ventricle Normal right ventricular cavity size and systolic function. Atria Both atria are normal in size. There is no evidence of interatrial shunt. Aortic Valve Normal aortic valve structure and function. There is no aortic valve stenosis. There is no aortic valve regurgitation. Mitral Valve Normal mitral valve structure and function. There is trace mitral valve regurgitation. There is no mitral valve stenosis. Pulmonic Valve The pulmonic valve is likely normal. Tricuspid Valve Normal tricuspid valve structure. There is trace tricuspid valve regurgitation. The right ventricular systolic pressure is normal. The right ventricular systolic pressure is 17 mmHg. Normal right atrial pressure. There is no evidence of pulmonary hypertension. Great Vessels All visible segments of the aorta are normal in size. The pulmonary artery was not well visualized. Venous The inferior vena cava is normal in size and collapses greater than 50% with inspiration. Pericardium/Pleural There is no evidence of pericardial effusion. Prior Study Comparison No prior study available for comparison. Measurements 2D Linear Measurements IVSd: 0.98 0.6-0.9/0.6-1.0 cm LVIDd: 4.06 3.9-5.3/4.2-5.9 cm LVIDd Index: 2.00 2.4-3.2/2.2-3.1 cm/m2 LVIDs: 2.78 2.0-3.6 cm LVPWd: 1.00 0.7-1.1 cm LA Diam: 3.40 2.7-3.8/3.0-4.0 cm LAIDs Index: 1.67 1.5-2.3 cm/m2 LV Mass: 159.22 67-162/88-224 g LV Mass Index: 78.43 43-95/49-115 g/m2 LVOT Diam: 1.80 3.0+(-)1.3 cm 2D Systolic Function EF 4C: 60.70 >55% EF 2C: 56.00 >55% EF BiP: 58.40 >55% Mitral Valve MV Pk E: 0.88 MV PK A: 0.67 MV Decel Time: 146.00 E/A: 1.30 E'Lateral: 14.10 E'Medial: 11.00 E/E' Med: 8.00 E/E' Lat: 6.30 PHT: 43.00 MVA PHT: 5.12 Decel Andrew: 6.04 Aortic Valve AoV Pk Gerson: 1.34 AoV Mn Gerson: 0.91 AoV VTI: 0.30 AoV Pk Grad: 7.00 Aov Mn Grad: 4.00 LINDA Cont.VTI: 2.24 LVOT LVOT Pk Gerson: 1.20 LVOT Mn Gerson: 0.80 LVOT VTI: 0.27 LVOT Pk Grad: 6.00 LVOT Mn Grad: 3.00 LVOT Diam: 1.80 LVOT Area: 2.54 Diastolic Function MV Pk E: 0.88 MV Pk A: 0.67 E/A: 1.30 E'Medial: 11.00 E/E' Med: 8.00 E' Laterial: 14.10 E/E' Lat: 6.30 Right Ventricle TAPSE (mm): 22.10 TVS' Gerson: 8.85 Tricuspid Valve TR Pk Gerson: 1.87 TR Pk Grad: 14.00 RA Press: 3.00 RVSP: 17.00 Great Vessels Aorta Sinus of Valsalva: 2.40 2.0-3.5 cm Ao Asc: 2.90 2.1-3.4 cm Pulmonary Valve PV Pk Gerson: 0.83 Peak PV Grad: 3.00 Updated in Other Vendor System with Status of Final Dennis Smith MD electronically signed on 10/27/2023 4:46:28 PM with status of Final
--- NOTE | 2023-10-27 08:55 | CA_ITS ---
Acquisition Time: 2023-10-27 09:44:16 Total Exercise Time: 00:07:03 Test Indications: ABN EKG, PREOP Medications: SEE H Protocol: MARVIN Max HR: 173 BPM 94% of Pred: 184 BPM Max BP: 200/088 mmHG Max Work Load: 8.6 METS Exercise stress test exercise 7 min 3 sec of Marvin protocol achieivng 94% and 8.6 METS, without anginal symptoms, with isolated PVCs, with hypertensive response to exercise - max blood pressure 200/58 with no symptoms, without EKG changes. Blood pressure returned to baseline with rest. Test reviewed with Dr. Smith. Blood pressure mangement recommended. Referred By: David Michelle Overread By: Sruthi Albarran
== END ==
LOC: HO.CARD 08:53
PROVIDERS: PCP Internal Medicine; Visit Provider Surgery
DX: I51.7 Cardiomegaly (principal)
CPT/HCPCS: 93017; 93306

== ENCOUNTER → 2023-10-27 08:55 | Outpatient (BNV) | payer OTHER, SELFPAY | PROVIDERS: PCP Internal Medicine; Visit Provider Internal Medicine Cardiovascular Disease | DX: I51.7 Cardiomegaly (principal) | CPT/HCPCS: 93016; 93018; 93320; 93325; 93350 ==

== ENCOUNTER 2024-01-26 08:10 | Outpatient (AMB) | payer OTHER, SELFPAY ==
--- NOTE | 2024-01-26 14:41 | MHC.OFFVISWM ---
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* Thermodynamics Professor Required: Yes Thermodynamics Professor Services: Thermodynamics Professor Present Thermodynamics Professor Name: Mary Paredes Information Interpreted: clinical only Allergies No Known Allergies Allergy (Verified 01/26/24 14:43) Medication List - Last Reconciled 01/26/24 by David Michelle MD cholecalciferol (vitamin D3) 125 mcg PO DAILY hydroxyzine HCl 10 mg PO BEDTIME levothyroxine 125 mcg PO DAILY ondansetron 4 mg PO Q12H pantoprazole 40 mg PO DAILY pantoprazole 40 mg PO DAILY polyethylene glycol 3350 17 grams PO DAILY sucralfate 10 mL PO BID thiamine HCl (vitamin B1) 100 mg PO DAILY vitamin A palmitate 10,000 units PO DAILY HPI HPI TV 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*: Details: Start time: 2.35pm, End time: 2.55pm ?I spent 15 minutes speaking with the patient on the phone plus an additional 5 minutes reviewing and updating records for a total of 20 minutes HPI Comments Details: Overall weight loss: 41.3lbs, or 16.6% TBWL Is doing 4 Celebrate Rebuild shakes with one scoop each in 8oz almond milk and one more Celebrate Rebuild shake with two scoops in 8oz almond milk Exercise: is doing treadmill x4/week for 200 calories PFSH Medical History (Updated 01/26/24 @ 14:47 by David Michelle MD) Obesity Hypothyroidism Morbid obesity Surgical History Surgical history unknown Social History Patient Tobacco Use Status: Never used Tobacco Telehealth Telehealth Telehealth Platform: Telephone Location of provider rendering services: practice address Location of patient: address on file Patient Identification confirmed using: Name, : Yes Telehealth method: voice only Patient verbally consented to treatment: Yes Patient verbally consented to billing insurance company: Yes Patient informed of any privacy concerns related to visit: Yes Minutes spent on Phone/Video with Pt.: 20 Assessment & Plan Assessment & Plan (1) Obesity: Code(s): E66.9 - Obesity, unspecified Category: Medical Qualifiers: Obesity type: due to excess calories Obesity classification: adult class 1 (BMI 30 - 34.9) Serious obesity comorbidity presence: with serious comorbidity Body mass index: BMI 34.0-34.9 Qualified Code(s): E66.09 - Other obesity due to excess calories; Z68.34 - Body mass index [BMI] 34.0-34.9, adult Plan: 1. Plan for lap sleeve gastrectomy including upper GI endoscopy. All tests has been completed and reviewed and the patient is cleared for the surgery. ?If diaphragmatic or ventral hernias are present at time of surgery, these will be repaired laparoscopically as well. Risks and complications were discussed in detail including possible conversion to an open procedure, anastomotic leak, bleeding requiring transfusion, small bowel obstruction, , DVT and pulmonary embolism, cardiac, or pulmonary complications, as [facility] complications such as anastomotic ulcer, insufficient weight loss and vitamin deficiencies. I emphasized the importance of close follow-up, adherence to instructions and good communication. So far she has proven to be an excellent communicator and very compliant with all our directions accomplishing a great weight loss. I believe that she is an excellent candidate and she is ready. 2. Preop prescriptions were provided and explained the purpose of each one. Need to be purchased preop. Start Pantoprazole now as you get it from the pharmacy, 1 pill per day. Sucralfate and Zofran are for after surgery as needed. 3. Bowel prep: please do 7 packets ?of Miralax mixing each one with a an 8oz glass of water, crystal light, gatorade zero, or propel ?on 02/02/24 and the same amount on 02/03/24. The Miralax you begin with one packet at a time in 8oz water or crystal light, gatorade zero, or propel ?as early in the day as you can and you do them back to back until you finish them. Continue the protein shakes during ?the bowel prep. 4. Needs to purchase 1oz medicine cups . 5. Needs to purchase Children's liquid Tylenol for postop pain control. 6. Avoid aspirin, motrin, Advil, Aleve, Ibuprofen, Naproxyn. Tylenol is OK. 7. She needs to purchase the Celebrate 4:1 protein shakes from the hospital's gift shop. 8. Will do basic preop blood work-up any day between Friday01/27/24 and Friday01/30/24 fasting for 12 hours and is scheduled to see the Anesthesiologist prior to the day of surgery. 9. Importance of adherence to postop folllow-up and recommendations was underscored and she understands that. 10. Continue to avoid food and bars and continue with 4 Celebrate Rebuild protein shakes (ONE scoop EACH in 8oz almond milk) at 5am-7am, 8am-10am, 11am-1pm and 2pm-4pm and one more Celebrate Rebuild protein shake with TWO scoops in 8oz of almond milk at 5pm-7pm 11. No soups, broths or V8 12. The patient's?medical?history has been reviewed and they are considered low risk for post op DVT and therefore DVT prophylaxis is not considered necessary. Travel after surgery was reviewed. The patient has not disclosed any travel plans during the first 30 days after surgery and they have been advised that within the first 30 days after surgery any bus, plane, train or car travel over 2 hours in duration is contraindicated due to the possibility of developing blood clots from immobility. Any travel, needs to include periods of ambulation of 10 minutes in duration every 2 hours.? Patient was instructed to discuss any plans for travel during this period with their bariatric surgeon.? 13. Please take at the day of surgery the following medications: NONE 14. Stop any control pills and don't use them for one month after surgery 15. Absolutely no smoking or vaping, or marijuana until the surgery and for at least the first 4 weeks. Only nicotine patches are allowed. 16. Send me weight measurements on Friday01/31/24 and then on Friday02/04/24, the day of surgery before you go to the hospital. 17. Avoid any steroids by mouth for any reason. Let me know if someone prescribes them to you 18. These instructions supersede anything else you read in the handbook, anything you watched in videos or classes or you were told by any other provider. If there is any conflict, you follow the above instructions and nothing else. Orders: Orders TSH reflex Free T4 Today E03.9 - Hypothyroidism, unspecified, E66.9 - Obesity, unspecified Comprehensive Met. Panel Today E03.9 - Hypothyroidism, unspecified, E66.9 - Obesity, unspecified C Reactive Protein Today E03.9 - Hypothyroidism, unspecified, E66.9 - Obesity, unspecified Partial Thromboplastin Time Today E03.9 - Hypothyroidism, unspecified, E66.9 - Obesity, unspecified Complete Blood Count Auto Diff Today E03.9 - Hypothyroidism, unspecified, E66.9 - Obesity, unspecified Prothrombin Time INR Today E03.9 - Hypothyroidism, unspecified, E66.9 - Obesity, unspecified Hemoglobin A1c Today E03.9 - Hypothyroidism, unspecified, E66.9 - Obesity, unspecified Lipid Panel Today E03.9 - Hypothyroidism, unspecified, E66.9 - Obesity, unspecified Insulin Today E03.9 - Hypothyroidism, unspecified, E66.9 - Obesity, unspecified Medications: New pantoprazole 40 mg PO DAILY 90 tabs 0RF K21.9 - Gastro-esophageal reflux disease without esophagitis ondansetron Only take one every 12 hours as needed if you have nausea 4 mg PO Q12H 20 tabs 0RF nausea and vomiting R11.0 - Nausea sucralfate 10 mL PO BID 600 mL 2RF K21.9 - Gastro-esophageal reflux disease without esophagitis polyethylene glycol 3350 Mix each measuring cup with 8oz of water, Crystal light, or Gatorade zero, or Propel and do 7 measuring cups on 02/02/24 and another 7 measuring cups on 02/03/24 17 grams PO DAILY 238 grams 0RF Z01.818 - Encounter for other preprocedural examination
[2024-01-26 14:42] VITALS: BMI 35.5
== END 2024-01-26 14:56 | disposition home or self-care (01) ==
LOC: HO.HBS 08:11
PROVIDERS: PCP Internal Medicine; Visit Provider Surgery
DX: E66.09 Other obesity due to excess calories (principal); Z68.34 Body mass index [BMI] 34.0-34.9, adult
CPT/HCPCS: 99499

== ENCOUNTER → 2024-01-26 08:10 | Outpatient (BNVA) | payer OTHER, SELFPAY | PROVIDERS: PCP Internal Medicine; Visit Provider Surgery ==

== ENCOUNTER → 2024-01-28 14:50 | Outpatient (BNVA) | payer OTHER, SELFPAY | PROVIDERS: PCP Internal Medicine; Visit Provider Physician Assistant Surgical ==

== ENCOUNTER 2024-02-04 06:16 | Inpatient (IN) | payer OTHER, SELFPAY ==
[2024-01-28 06:20] LABS: MANUAL DIFF FLAG NO
[2024-01-28 07:33] LABS: Basophils Percent Auto 1.2 % (0-2); Eosinophils Absolute Auto 0.1 X10*3/uL (0.0-0.4); Hematocrit 37.4 % (37.0-47.0); Hemoglobin 12.8 g/dl (12.0-16.0); Imm Gran Abs Auto 0.01 X10*3/uL (0.00-0.03); Imm Gran Pct Auto 0.3 % (0.0-0.4); Lymphocytes Absolute Auto 1.5 X10*3/uL (1.2-4.9); Lymphocytes Percent Auto 42.7 % (20-40); Mean Corpuscular HGB Conc 34.2 g/dl (31.0-35.0); Mean Corpuscular Hemoglobin 29.7 pg (27.0-33.0); Mean Corpuscular Volume 86.8 fL (80.0-98.0); Mean Platelet Volume 9.8 fL (9.4-12.3); Monocytes Absolute Auto 0.4 X10*3/uL (0.1-1.2); Monocytes Percent Auto 11.1 % (2-11); Neutrophils Absolute Auto 1.5 x10*3/uL (2.0-8.3); Neutrophils Percent Auto 42.7 % (45-73); Platelet Count 258 X10*3/uL (160-400); Red Blood Count 4.31 X10*6/uL (4.20-5.50); Red Cell Distribution Width 12.2 % (11.0-16.0); White Blood Count 3.4 X10*3/uL (4.8-10.8)
[2024-01-28 07:40] LABS: Prothrombin Time 12.2 SEC (10.9-12.4)
[2024-01-28 07:42] LABS: Partial Thromboplastin Time 31.3 SEC (26.0-36.8)
[2024-01-28 07:49] LABS: Estimated Average Glucose 100 mg/dL; Hemoglobin A1C 103.6292 umol/L; Hemoglobin A1c % 5.1 % (<6.0); Total Hemoglobin (HGBA1C) 3240.9219 umol/L
[2024-01-28 08:05] LABS: Alanine Aminotransferase 13 U/L (0-31); Albumin Level 4.1 g/dL (3.5-5.0); Alkaline Phosphatase 71 U/L (39-117); Anion Gap 14 (12-20); Aspartate Amino Transferase 21 U/L (5-31); Bilirubin Total 0.9 mg/dL (0.0-1.0); Blood Urea Nitrogen 13 mg/dL (9-16); C Reactive Protein 0.98 mg/dL (< or = 0.50); Calcium 9.9 mg/dL (8.4-10.2); Carbon Dioxide 27 mmol/L (22-29); Chloride 100 mmol/L (96-108); Cholesterol 181 mg/dL (<200); Estimated Glomerular Filt Rate > 60; Glucose Random 78 mg/dL (60-115); HDL Cholesterol 49 mg/dL (>40); LDL Cholesterol Calculated 119 mg/dL (<100); Potassium 4.2 mmol/L (3.3-5.1); Sodium 137 mmol/L (135-145); Total Protein 8.2 g/dL (6.5-8.0); Triglycerides 68 mg/dL (<150)
[2024-01-28 08:25] LABS: Insulin 3 uU/mL (2-29)
[2024-01-28 09:09] LABS: Free T4 (Free Thyroxine) 1.31 ng/dL (0.71-1.85)
[2024-01-29 14:35] VITALS: BMI 35.5
--- NOTE | 2024-02-02 15:22 | P.CONAN_ITS ---
Documented by User: Marialuisa Miranda NP 02/02/24 15:23 HPI - Anesthesia Eval Consult details Narrative: 38yo F for Gastrectomy Sleeve- EGD, possible diaphragmatic hernia, possible ventral hernia, possible open PMFSH Active Problems Active Problems: All Active Problems Pre-op evaluation (Acute) Esophagitis determined by biopsy (Acute) Vitamin B1 deficiency (Acute) Cardiomegaly (Acute) Vitamin A deficiency (Acute) Vitamin D deficiency (Acute) Obesity (Acute) Hypothyroidism (Acute) Morbid obesity (Acute) Past Medical History Medical History Obesity Hypothyroidism Morbid obesity Surgical History Surgical History History of esophagogastroduodenoscopy (EGD) History of Problems with Anesthesia: No Social History Social History Are you a primary healthcare insurance sales agent to a significant other at home: No Do you presently have visiting nurse or other home services: No Patient Tobacco Use Status: Never used Tobacco Use of substances other than those prescribed or required for medical reasons: No Have you been hit, kicked, punched, or otherwise hurt by someone within the past year? If so, by whom?: No Spiritual Healthcare Practices: none Denominational Healthcare Practices: none Cultural Healthcare Practices: none Are you DNR?: No Advance Directives: No (friend is primary contact) Advance Directives Information Provided: Yes (as above noted) Advance Directives on File: No Recently lost weight without trying: No Eating poorly because of decreased appetite: No Nutrition Risks: No Nutritional Risk Patient : No FDLMP: 01/17/24 : No Poor oral hygiene: No Meds Allergies Allergy/AdvReac Type Severity Reaction Status Date / Time No Known Allergies Allergy Verified 02/04/24 06:20 Home Medications ?Medication ?Instructions ?Recorded ?Confirmed ?Last Taken ?Type hydroxyzine HCl 10 mg tablet 10 mg PO BEDTIME 07/25/23 01/28/24 01/21/24 History levothyroxine 125 mcg tablet 125 mcg PO DAILY 07/25/23 01/28/24 02/03/24 History Exam Height,Weight and Vital Signs: Height 5 ft 4 in Weight 93.695 kg Pertinent Lab Results Pertinent Lab Results: Laboratory Tests 01/28/24 01/29/24 06:19 15:20 WBC 3.4 L RBC 4.31 Hgb 12.8 Hct 37.4 MCV 86.8 MCH 29.7 MCHC 34.2 RDW 12.2 Plt Count 258 MPV 9.8 Immature Gran % (Auto) 0.3 Neut % (Auto) 42.7 L Lymph % (Auto) 42.7 H [place] % (Auto) 11.1 H Eos % (Auto) 2.0 Baso % (Auto) 1.2 Lymph # (Auto) 1.5 [place] # (Auto) 0.4 Eos # (Auto) 0.1 Baso # (Auto) 0.0 Abs Immat Gran (auto) 0.01 Absolute Neuts (auto) 1.5 L Absolute Nucleated RBC 0.000 Nucleated RBC % (auto) 0.0 PT 12.2 INR 1.0 APTT 31.3 Sodium 137 Potassium 4.2 D Chloride 100 Carbon Dioxide 27 Anion Gap 14 BUN 13 Creatinine 0.82 Estim Creat Clear Calc TNP Estimated GFR > 60 Random Glucose 78 Estimat Average Glucose 100 Hemoglobin A1c % 5.1 Insulin Level 3 Calcium 9.9 D Total Bilirubin 0.9 AST 21 ALT 13 Alkaline Phosphatase 71 C-Reactive Protein 0.98 H Total Protein 8.2 H Albumin 4.1 Triglycerides 68 Cholesterol 181 LDL Cholesterol, Calc 119 H HDL Cholesterol 49 TSH 5.60 H Free T4 1.31 Blood Type O Positive Antibody Screen NEGATIVE Narrative Narrative: EKG 09/2023 Vent. Rate : 062 BPM Atrial Rate : 062 BPM P-R Int : 148 ms QRS Dur : 072 ms QT Int : 408 ms P-R-T Axes : 043 022 022 degrees QTc Int : 414 ms Normal sinus rhythm with sinus arrhythmia Low voltage QRS Borderline ECG No previous ECGs available Exercise Stress 2023 Protocol: MARVIN Max HR: 173 BPM 94% of Pred: 184 BPM Max BP: 200/088 mmHG Max Work Load: 8.6 METS Exercise stress test exercise 7 min 3 sec of Marvin protocol achieivng 94% and 8.6 METS, without anginal symptoms, with isolated PVCs, with hypertensive response to exercise - max blood pressure 200/58 with no symptoms, without EKG changes. Blood pressure returned to baseline with rest. Test reviewed with Dr. Smith. Blood pressure mangement recommended. ECHO 2023 Conclusions: - Normal study Assessment and Plan Assessment Anesthesia Assessment: Chart Reviewed Final Anesthetic Review History of Problems with Anesthesia: No Documented by User: Nu Gregorio MD 02/04/24 07:43 [facility] Past Medical History Medical History Obesity Hypothyroidism Morbid obesity Surgical History Surgical History History of esophagogastroduodenoscopy (EGD) Social History Social History Are you a primary healthcare insurance sales agent to a significant other at home: No Do you presently have visiting nurse or other home services: No Patient Tobacco Use Status: Never used Tobacco Use of substances other than those prescribed or required for medical reasons: No Have you been hit, kicked, punched, or otherwise hurt by someone within the past year? If so, by whom?: No Spiritual Healthcare Practices: none Denominational Healthcare Practices: none Cultural Healthcare Practices: none Are you DNR?: No Advance Directives: No (friend is primary contact) Advance Directives Information Provided: Yes (as above noted) Advance Directives on File: No Recently lost weight without trying: No Eating poorly because of decreased appetite: No Nutrition Risks: No Nutritional Risk Patient : No FDLMP: 01/17/24 : No Poor oral hygiene: No Meds Allergies Allergy/AdvReac Type Severity Reaction Status Date / Time No Known Allergies Allergy Verified 02/04/24 06:20 Home Medications ?Medication ?Instructions ?Recorded ?Confirmed ?Last Taken ?Type hydroxyzine HCl 10 mg tablet 10 mg PO BEDTIME 07/25/23 01/28/24 01/21/24 History levothyroxine 125 mcg tablet 125 mcg PO DAILY 07/25/23 01/28/24 02/03/24 History Exam Airway Mallampati Class: II TM Dist: >3cm Neck ROM: Full Loose/Missing/Broken Teeth: No Heart: RRR Lungs: CTA Assessment and Plan Assessment Anesthesia Assessment: Anesthesia Plan Discussed Final Anesthetic Review NPO: Yes ASA Class: II Final Preanesthetic Review: Meds/Allgs Chart Reviewed, Consent Obtained/Reviewed and Anes Risks/Benef Reviewed Patient Risk: Low Procedure Risk: Intermediate Anesthetic Plan Anesthetic Plan: GA Disposition: Standard PACU
[2024-02-04] VITALS (11 sets, daily range): BP systolic 121–150; BP diastolic 64–94; PULSE 67–109; RESP 15–18; TEMP 36.2–37.2; O2SAT 97–100; BMI 33.6
--- OUTSIDE RECORDS SUMMARY | 2024-02-04 06:21 | XMS_ITS | Continuity of Care Document ---
Author Organization [facility] Address [address] [place] [address]- Care Team Providers Care Bag Loader Machine Operator Name Role Phone Matheus AVALOS, Rosemarie Lopez Primary Care Physician Encounter [facility] Date(s): 04/12/20 - 05/12/20 [facility] [address] [place], [place] [address] Attending Physician: Delia Martínez Admitting Physician: AdmDelia perez Referring Physician: Admtr, Ar8 Allergies, Adverse Reactions, Alerts Substance Reaction Severity Status NKA Active Medications levothyroxine 125 mcg (0.125 mg) oral tablet 1 tablet = 125 mcg, By Mouth, Daily, PLS CONTACT PCP FOR FURTHER REFILLS, # 30 tablet, 2 Refills, Maintenance, 04/25/20 16:18:00 EST, [id number], 168, cm, 01/05/19 8:28:00 EDT, Height Start Date: 04/25/20 Status: Ordered Problem List Condition Effective Dates Status Health Status Inform ant Hypertension(Confirmed) Active Hyperthyroidism(Confirmed) Active
--- OUTSIDE RECORDS SUMMARY | 2024-02-04 06:21 | XMS_ITS | Continuity of Care Document ---
Author Organization [facility] Address [address] [place] [id number]- Care Team Providers Care Art Consultant Name Role Phone Matheus AVALOS, Rosemarie Lopez Primary Care Physician [phone] [place] [facility] [place] 12[place]13[place]21 [facility] [address] [place] [address] Allergies, Adverse Reactions, Alerts No Known Allergies Medications levothyroxine 0.112 mg oral tablet 1 tablet = 112 mcg, By Mouth, Daily, # 90 tablet, 4 Refills, Maintenance, 04/11/21 8:45:00 EST, Tablet, [id number], Partial fill upon patient request if the prescription is for a schedule II opioid drug., 163, cm, 12/30/20 2:44:00 EDT, Height,... Start Date: 04/11/21 Status: Ordered Problem List Condition Effective Dates Status Health Status Inform ant Hypertension(Confirmed) Active Hyperthyroidism(Confirmed) Active
--- OUTSIDE RECORDS SUMMARY | 2024-02-04 06:21 | XMS_ITS | Continuity of Care Document ---
Author Organization [facility] [place] Address [address] [place] [address]- Care Team Providers Care Television Announcer Name Role Phone Rosemarie Jarvis MD Primary Care Physician [place] [facility] [place]23 [place] 07/30/23 [facility] [place] [address] [place] [address]- Attending Physician: Delia Martínez Admitting Physician: Admtr, Delia Referring Physician: Admtr, Ar8 Allergies, Adverse Reactions, Alerts No Known Allergies Medications levothyroxine 0.112 mg oral tablet 1 tablet = 112 mcg, By Mouth, Daily, # 90 tablet, 4 Refills, Maintenance, 04/11/21 8:45:00 EST, Tablet, [id number], Partial fill upon patient request if the prescription is for a schedule II opioid drug., 163, cm, 12/30/20 2:44:00 EDT, Height,... Start Date: 04/11/21 Status: Ordered levothyroxine 125 mcg (0.125 mg) oral tablet 1 tablet = 125 mcg, By Mouth, Daily, with plenty of water on an empty stomach avoid antacids, calcium, or iron for at least 4 hrs before or 4 hrs after at least 1 hour before food, # 30 tablet, 11 Refills, Maintenance, 08/12/22 13:56:00 EDT, Tablet... Start Date: 08/12/22 Status: Ordered Problem List Condition Confirmation Course Effective Dates Status Health St [facility] Informant Hypertension Confirmed Active Hyperthyroidism Confirmed Active Severe obesity Confirmed Active Patient Care team information Care Team Personnel Name: Rosemarie Jarvis MD Position: Reference Physician Member Role: PCP Address: Address: [address] [place] [address], [address] [place] [address]- Care Team Related Persons Name: REHAN JANUSZ Address: home [address] [place] [address] Name: ANDREINA ROMANO Address: home [address] [place] [id number]
--- OUTSIDE RECORDS SUMMARY | 2024-02-04 06:21 | XMS_ITS | Continuity of Care Document ---
Author Organization [facility] Address [address] [place] [address]- Care Team Providers Care Flame Hardener Name Role Phone Matheus AVALOS, Rosemarie Lopez Primary Care Physician [place] [facility] [place] 09/02/21 [facility] [address] [place] [address] Allergies, Adverse Reactions, Alerts No Known Allergies Medications levothyroxine 0.112 mg oral tablet 1 tablet = 112 mcg, By Mouth, Daily, # 90 tablet, 4 Refills, Maintenance, 04/11/21 8:45:00 EST, Tablet, [id number], Partial fill upon patient request if the prescription is for a schedule II opioid drug., 163, cm, 12/30/20 2:44:00 EDT, Height,... Start Date: 04/11/21 Status: Ordered Problem List Condition Effective Dates Status Health Status Inform ant Hypertension(Confirmed) Active Hyperthyroidism(Confirmed) Active
--- OUTSIDE RECORDS SUMMARY | 2024-02-04 06:21 | XMS_ITS | Continuity of Care Document ---
Author Organization [facility] Address [address] [place] [address]- Care Team Providers Care Pipe Tester Name Role Phone Matheus AVALOS, Rosemarie Lopez Primary Care Physician Encounter [facility] [place] Date(s): 04/06/19 - 08/04/19 [facility] [address] [place] [address]- [facility] Attending Physician: Danelle Bailey MD Admitting Physician: Danelle Bailey MD Referring Physician: Rosemarie Jarvis MD Allergies, Adverse Reactions, Alerts Substance Reaction Severity Status NKA Active Medications levothyroxine 0.112 mg oral tablet 1 tablet = 112 mcg, By Mouth, Daily, # 30 tablet, 11 Refills, Maintenance, 02/09/19 14:09:40 EDT, Tablet, note the dose change Start Date: 02/09/19 Status: Ordered Problem List Condition Effective Dates Status Health Status Inform ant Hypertension(Confirmed) Active Hyperthyroidism(Confirmed) Active
--- OUTSIDE RECORDS SUMMARY | 2024-02-04 06:21 | XMS_ITS | Continuity of Care Document ---
Author Organization [facility] Address [address] [place] [address]- Care Team Providers Care Sweetbread Trimmer Name Role Phone Matheus AVALOS, Rosemarie Lopez Primary Care Physician Encounter [facility] Date(s): 02/08/20 - 03/09/20 [facility] [address] [place], [place] [address] Allergies, Adverse Reactions, Alerts Substance Reaction Severity Status NKA Active Medications levothyroxine 125 mcg (0.125 mg) oral tablet 1 tablet = 125 mcg, By Mouth, Daily, # 30 tablet, 1 Refills, Maintenance, 02/15/20 15:19:00 EDT, [id number], 168, cm, 01/05/19 8:28:00 EDT, Height Start Date: 02/15/20 Status: Ordered Problem List Condition Effective Dates Status Health Status Inform ant Hypertension(Confirmed) Active Hyperthyroidism(Confirmed) Active
--- OUTSIDE RECORDS SUMMARY | 2024-02-04 06:21 | XMS_ITS | Continuity of Care Document ---
Author Organization [facility] Address [address] [place] [address]- Care Team Providers Care Coding Assistant Name Role Phone Matheus AVALOS, Rosemarie Lopez Primary Care Physician Encounter [facility] [place] Date(s): 04/09/21 - 05/09/21 [facility] [address] [place] [address] Attending Physician: Delia Martínez Admitting Physician: AdmDelia perez Referring Physician: Admtr, Delia Allergies, Adverse Reactions, Alerts Substance Reaction Severity Status NKA Active Medications levothyroxine 0.112 mg oral tablet 1 tablet = 112 mcg, By Mouth, Daily, # 90 tablet, 4 Refills, Maintenance, 04/11/21 8:45:00 EST, Tablet, [id number], Partial fill upon patient request if the prescription is for a schedule II opioid drug., 163, cm, 12/30/20 2:44:00 EDT, Height,... Start Date: 04/11/21 Status: Ordered Problem List Condition Effective Dates Status Health Status Inform ant Hypertension(Confirmed) Active Hyperthyroidism(Confirmed) Active
--- OUTSIDE RECORDS SUMMARY | 2024-02-04 06:21 | XMS_ITS | Continuity of Care Document ---
Author Organization [facility] Address [address] [place] [address]- Care Team Providers Care Microfilm Machine Operator Name Role Phone Matheus AVALOS, Rosemarie Lopez Primary Care Physician Encounter [facility] [place] Date(s): 08/03/21 - 09/02/21 [facility] [address] [place] [email or web address] Allergies, Adverse Reactions, Alerts No Known Allergies Medications levothyroxine 0.112 mg oral tablet 1 tablet = 112 mcg, By Mouth, Daily, # 90 tablet, 4 Refills, Maintenance, 04/11/21 8:45:00 EST, Tablet, [id number], Partial fill upon patient request if the prescription is for a schedule II opioid drug., 163, cm, 12/30/20 2:44:00 EDT, Height,... Start Date: 04/11/21 Status: Ordered Problem List Condition Effective Dates Status Health Status Inform ant Hypertension(Confirmed) Active Hyperthyroidism(Confirmed) Active
--- OUTSIDE RECORDS SUMMARY | 2024-02-04 06:21 | XMS_ITS | Continuity of Care Document ---
Author Organization [facility] Address [address] [place] [address]- Care Team Providers Care Dietetic Intern Name Role Phone Matheus AVALOS, Rosemarie Lopez Primary Care Physician En[place] [facility] [place] Date(s): 04/11/21 - 05/11/21 [facility] [address] [place] [address] Allergies, Adverse Reactions, Alerts Substance Reaction Severity Status NKA Active Medications levothyroxine 0.112 mg oral tablet 1 tablet = 112 mcg, By Mouth, Daily, # 90 tablet, 4 Refills, Maintenance, 04/11/21 8:45:00 EST, Tablet, [id number], Partial fill upon patient request if the prescription is for a schedule II opioid drug., 163, cm, 12/30/20 2:44:00 EDT, Height,... Start Date: 04/11/21 Status: Ordered Problem List Condition Effective Dates Status Health Status Inform ant Hypertension(Confirmed) Active Hyperthyroidism(Confirmed) Active
--- OUTSIDE RECORDS SUMMARY | 2024-02-04 06:21 | XMS_ITS | Continuity of Care Document ---
Author Organization [facility] Address [address] [place] [address]- Care Team Providers Care Scanning Clerk Name Role Phone Rosemarie Jarvis MD Primary Care Physician [phone] [place] [facility] [place] 03/11/23 - 07/30/23 [facility] Adult [address] [place] [address]- Attending Physician: Beverley Tesfaye Allergies, Adverse Reactions, Alerts No Known Allergies Medications levothyroxine 0.112 mg oral tablet 1 tablet = 112 mcg, By Mouth, Daily, # 90 tablet, 4 Refills, Maintenance, 04/11/21 8:45:00 EST, Tablet, [id number], Partial fill upon patient request if the [...] Reference Physician Member Role: PCP Address: Address: [address] [place] [address], [address] [place] [address]- Care Team Related Persons Name: JANUSZ VAN Address: home [address] [place] [address] Name: ANDREINA ROMANO Address: home [address] [address]
--- OUTSIDE RECORDS SUMMARY | 2024-02-04 06:21 | XMS_ITS | Continuity of Care Document ---
Author Organization [facility] Address [address] [place] [address]- Care Team Providers Care Adapted Physical Education Specialist Name Role Phone Val Palacio MD Primary Care Physicia n Encounter [facility] [place] Date(s): 10/15/23 - 11/14/23 [facility] [address] [place], [place] [address] Allergies, Adverse Reactions, Alerts No Known Allergies [...] Care team information Care Team Personnel Name: Val Palacio MD Position: Reference Physician Member Role: PCP Address: Address: [address] [place] [address]- Care Team Related Persons Name: JANUSZ VAN Address: home [address] [place] [address] Name: ANDREINA ROMANO Address: home [address] [place] [address]
--- OUTSIDE RECORDS SUMMARY | 2024-02-04 06:21 | XMS_ITS | Continuity of Care Document ---
Author Organization [facility] Address [address] [place] [address]- Care Team Providers Care Firestop/Containment Worker Name Role Phone Matheus AVALOS, Rosemarie Lopez Primary Care Physician Encounter [facility] Date(s): 04/13/21 - 05/13/21 [facility] [address] [place] [address] Allergies, Adverse Reactions, Alerts Substance Reaction Severity [...]
--- OUTSIDE RECORDS SUMMARY | 2024-02-04 06:21 | XMS_ITS | Continuity of Care Document ---
Author Organization [facility] Diabetes Address [address] [place] [address]- Care Team Providers Care Ambulatory Service Representative Name Role Phone Matheus AVALOS, Rosemarie D Primary Care Physician Encounter [facility] Date(s): 02/20/21 - 03/22/21 [facility] [address] [place], [place] [address] Allergies, Adverse Reactions, Alerts Substance Reaction Severity Status NKA Active Medications levothyroxine 125 mcg (0.125 mg) oral tablet 1 tablet, By Mouth, Daily, # 30 tablet, 2 Refills, Maintenance, 12/06/20 12:03:00 EDT, [facility], 168, cm, 01/05/19 8:28:00 EDT, Height Start Date: 12/06/20 Status: Ordered Problem List Condition Effective Dates Status Health Status Inform ant Hypertension(Confirmed) Active Hyperthyroidism(Confirmed) Active
--- OUTSIDE RECORDS SUMMARY | 2024-02-04 06:21 | XMS_ITS | Continuity of Care Document ---
Author Organization [facility] Address [address] [place] [address]- Care Team Providers Care Rn Traveling Name Role Phone Rosemarie Jarvis MD Primary Care Physician Encounter [facility] [place] Date(s): 06/30/23 - 07/30/23 [facility] Adult [address] [place] [address]- Allergies, Adverse Reactions, Alerts No Known Allergies Medications levothyroxine 0.112 mg oral tablet 1 tablet = 112 mcg, By Mouth, Daily, # 90 tablet, 4 Refills, Maintenance, 04/11/21 8:45:00 EST, Tablet, [facility] #[id number], Partial fill upon patient request if [...] Condition Confirmation Course Effective Dates Status Health atus Informant Hypertension Confirmed Active Hyperthyroidism Confirmed Active Severe obesity Confirmed Active Patient Care team information Care Team Personnel Name: Rosemarie Jarvis MD Position: Reference Physician Member Role: PCP Address: Address: [address] [place] [address], [address] [place] [address]- Care Team Related Persons Name: JANUSZ VAN Address: home [address] [place] [address] Name: ANDREINA ROMANO Address: home [address] [place] [address]
--- OUTSIDE RECORDS SUMMARY | 2024-02-04 06:21 | XMS_ITS | Continuity of Care Document ---
Author Organization [facility] Address [address] [place] [address]- Care Team Providers Care Fiscal Services Manager Name Role Phone Matheus AVALOS, Rosemarie D Primary Care Physician [phone] Encounter [facility] Date(s): 01/14/21 - 02/13/21 [facility] [address] [place], [place] [address] Allergies, Adverse Reactions, Alerts Substance Reaction Severity Status NKA Active Medications levothyroxine 125 mcg (0.125 mg) oral tablet 1 tablet, By Mouth, Daily, # 30 tablet, 2 Refills, Maintenance, 12/06/20 12:03:00 EDT, [facility], 168, cm, 01/05/19 8:28:00 EDT, Height Start Date: 12/06/20 Status: Ordered Problem List Condition Effective Dates Status Health Status Inform ant Hypertension(Confirmed) Active Hyperthyroidism(Confirmed) Active
--- OUTSIDE RECORDS SUMMARY | 2024-02-04 06:21 | XMS_ITS | Continuity of Care Document ---
Author Organization [facility] Address [address] [place] [address]- Care Team Providers Care Agriculture Mechanic Name Role Phone Rosemarie Jarvis MD Primary Care Physician Encounter [facility] [place] Date(s): 03/11/23 - 04/10/23 [facility] Adult [address] [place] [address]- Allergies, Adverse Reactions, Alerts No Known Allergies Medications levothyroxine 0.112 mg oral tablet 1 tablet = 112 mcg, By Mouth, Daily, # 90 tablet, 4 Refills, Maintenance, 04/11/21 8:45:00 EST, Tablet, [facility]/pharmacy #[id number], Partial fill upon patient request if [...] Reference Physician Member Role: PCP Address: Address: [address] [place] [address], [address] [place] [address]- Care Team Related Persons Name: JANUSZ VAN Address: home [address] [place] [address] Name: ANDREINA ROMANO Address: home [address] [place] [address]
--- OUTSIDE RECORDS SUMMARY | 2024-02-04 06:21 | XMS_ITS | Continuity of Care Document ---
Author Organization [facility] Address [address] [place] [address]- Care Team Providers Care Sales Leader Name Role Phone Rosemarie Jarvis MD Primary Care Physician [phone] Encounter [id number] Date(s): 07/01/23 - 09/03/23 [facility] Adult Medicine [address] [place] [address]- Attending Physician: Jose Purcell NP Allergies, Adverse Reactions, Alerts No Known Allergies Medications levothyroxine 0.112 mg oral tablet 1 tablet = 112 mcg, By Mouth, Daily, # 90 tablet, 4 Refills, Maintenance, 04/11/21 8:45:00 EST, Tablet, [facility]/pharmacy #[id number], Partial fill upon patient request [...] Reference Physician Member Role: PCP Address: Address: [address] [facility], [address] [place] [address]- Care Team Related Persons Name: JANUSZ VAN Address: home [address] [place] [address] Name: ANDREINA ROMANO Address: home [address] [place] [address]
--- OUTSIDE RECORDS SUMMARY | 2024-02-04 06:21 | XMS_ITS | Continuity of Care Document ---
Author Organization [facility] Address [address] [place] [address]- Care Team Providers Care Whipped Topping Supervisor Name Role Phone Rosemarie Jarvis MD Primary Care Physician [id number] Date[facility] 07/01[facility]23 - 07/31/23 [facility] [address] [place] [address]- Allergies, Adverse Reactions, Alerts No Known Allergies [...] Physician Member Role: PCP Address: Address: [address] [facility], [address] [place] [address]- Care Team Related Persons Name: JANUSZ VAN Address: home [address] [place] [address] Name: ANDREINA ROMANO Address: home [address] [address]
--- OUTSIDE RECORDS SUMMARY | 2024-02-04 06:21 | XMS_ITS | Continuity of Care Document ---
Author Organization [facility] Address [address] [place] [address]- Care Team Providers Care Certified Personal Trainer Name Role Phone Rosemarie Jarvis MD Primary Care Physician Encounter [facility] [place] Date(s): 08/12/22 - 09/11/22 [facility] [address] [place] [address]- Attending Physician: Delia Martínez Admitting Physician: AdmDelia perez Referring Physician: Admtr, Ar8 Allergies, Adverse Reactions, Alerts No Known Allergies Medications levothyroxine 0.112 mg oral tablet 1 tablet = 112 mcg, By Mouth, Daily, # 90 tablet, 4 Refills, Maintenance, 04/11/21 8:45:00 EST, Tablet, [facility]/pharmacy #[id number], Partial fill upon patient request if [...] Hyperthyroidism Confirmed Active Severe obesity Confirmed Active Laboratory * Event Display: Non Lab Results Authored Date: * Event Display: Non Lab Results Authored Date: Patient Care team information Care Team Personnel Name: Rosemarie Jarvis MD Position: [facility] Physician (General Medicine) Member Role: PCP Address: Address: [address] [place] [address]- Care Team Related Persons Name: VANJANUSZ Address: home [address] [place] [address] Name: ANDREINA ROMANO Address: home [address] [address]
--- OUTSIDE RECORDS SUMMARY | 2024-02-04 06:21 | XMS_ITS | Continuity of Care Document ---
Author Organization [facility] Address [address] [place] [address]- Care Team Providers Care Metal Riveting Machine Operator Name Role Phone Matheus AVALOS, Rosemarie Lopez Primary Care Physician [phone] [facility] Date(s): 12/29/20 - 12/30/[address] [address]- Discharge Disposition: A-D/C Home Attending Physician: Cece Nobles MD Admitting Physician: Cece Nobles MD Referring Physician: Not on Staff, Referring MD Allergies, Adverse Reactions, Alerts Substance Reaction Severity Status NKA Active Medications levothyroxine 125 mcg (0.125 mg) oral tablet 1 tablet, By Mouth, Daily, # 30 tablet, 2 Refills, Maintenance, 12/06/20 12:03:00 EDT, [facility], 168, cm, 01/05/19 8:28:00 EDT, Height Start Date: 12/06/20 Status: Ordered Problem List Condition Effective Dates Status Health Status Inform ant Hypertension(Confirmed) Active Hyperthyroidism(Confirmed) Active Results Radiology Reports * Exam Date Time Procedure Performing Provider Status 12/30/20 1:21 AM Chest Portable Verito Echols; Auth (Verified) Notes: (Chest Portable) Reason For Exam: COVID+;Other: RESULT: Chest Portable AP upright portable chest dated December 30, 2020 at 0110 hours. No prior studies are available. HISTORY: Fever. FINDINGS: The cardiac silhouette is within normal limits for size. Hilar and mediastinal structuresare unremarkable. Patchy airspace infiltrates are present in the mid and lower lungs right greater than left. No pleural effusion is identified. Visualized osseous structures are unremarkable. IMPRESSION: Bilateral infiltrates right greater than left consistent with pneumonia. Examination [id number]. Thank you for allowing me to participate in the care of this patient. WSN: [id number] Ordering Physician: Cece Nobles Dictated By: Patrice Altamirano MD Dictated Date/Time: 12/30/20 7:41 am Reviewed By: Patrice Altamirano MD Signed By: Patrice Altamirano MD Signed Date/Time: 12/30/20 7:41 am Transcribed By: LELE Transcribed Date/Time: 12/30/20 7:41 am Vital Signs Most recent to oldest [Reference Range]: 1 2 Height 163 cm (12/30/20 2:44 AM) 163 cm (12/29/20 8:21 PM) Weight 104.8 kg (12/30/20 2:44 AM) 104.8 kg (12/29/20 8:21 PM) Oxygen Saturation [94-100 %] 97 % (12/30/20 2:44 AM) 96 % (12/29/20 8:21 PM) Pulse Rate [55-90 bpm] 96 bpm *H* (12/30/20 2:44 AM) 106 bpm *H* (12/29/20 8:21 PM) Body Mass Index [18.5-24.99] 39.44 *>HHI* (12/30/20 2:44 AM) Blood Pressure [90-138/55-84 mm Hg] 122/ 76mm Hg (12/30/20 2:44 AM) 109/80mm Hg (12/29/20 8:21 PM) Respiratory Rate [16-30 br/min] 16 br/mi n (12/30/20 2:44 AM) 22 br/min (12/29/20 8:21 PM) Temperature [96.8-100.4 DegF] 98.1 DegF (12/29/20 8:21 PM) Mode of Delivery (Oxygen) Room air (12/30/20 2:44 AM) Room air (12/29/20 8:21 PM) Blood pressure sites Arm, left (12/30/20 2:44 AM) Temperature Route Temporal (12/29/20 8:21 PM) Dry Weight 104.8 kg (12/30/20 2:44 AM) 104.8 kg (12/29/20 8:21 PM)
--- OUTSIDE RECORDS SUMMARY | 2024-02-04 06:21 | XMS_ITS | Continuity of Care Document ---
Author Organization [facility] Diabetes Address [address] [place] [address]- Care Team Providers Care Finisher Wallboard And Plasterboard Name Role Phone Matheus AVALOS, Rosemarie D Primary Care Physician [facility]counter [facility] Date(s): 02/19/21 - 03/21/21 [facility] [address] [place], [place] [address] Allergies, Adverse Reactions, Alerts Substance Reaction Severity Status NKA Active Medications levothyroxine 125 mcg (0.125 mg) oral tablet 1 tablet, By Mouth, Daily, # 30 tablet, 2 Refills, Maintenance, 12/06/20 12:03:00 EDT, [facility], 168, cm, 01/05/19 8:28:00 EDT, Height Start Date: 12/06/20 Status: Ordered Problem List Condition Effective Dates Status Health Status Inform ant Hypertension(Confirmed) Active Hyperthyroidism(Confirmed) Active
--- OUTSIDE RECORDS SUMMARY | 2024-02-04 06:21 | XMS_ITS | Continuity of Care Document ---
Author Organization [facility] Address [address] [place] [address]- Care Team Providers Care Rope Maker Name Role Phone Rosemarie Jarvis MD Primary Care Physician [phone] [id number] Date(s): 08/04/23 - 09/03/23 [facility] [address] [place] [address]- Attending Physician: Delia Martínez Admitting Physician: Delia Martínez Referring Physician: AdmtrDelia Allergies, Adverse Reactions, Alerts No Known Allergies Medications levothyroxine 0.112 mg oral tablet 1 tablet = 112 mcg, By Mouth, Daily, # 90 tablet, 4 Refills, Maintenance, 04/11/21 8:45:00 EST, Tablet, [facility]/pharmacy #[id number], Partial fill upon patient request [...] Reference Physician Member Role: PCP Address: Address: [address] [place] [address], [address] [place] [address]- Care Team Related Persons Name: REHAN JANUSZ Address: home [address] [place] [address] Name: ANDREINA ROMANO Address: home [address] [place] [address]
--- OUTSIDE RECORDS SUMMARY | 2024-02-04 06:21 | XMS_ITS | Continuity of Care Document ---
Author Organization [facility] Diabetes Address [address] [place] [address]- Care Team Providers Care Vacuum Extractor Operator Name Role Phone Matheus AVALOS, Rosemarie Lopez Primary Care Physician [place] [facility] [place] Date(s): 02/15/20 - 05/12/20 [facility] Diabetes [address] [place], [place] [address] Attending Physician: Danelle Bailey MD Admitting Physician: [...]
[2024-02-04 06:37] LABS: UPreg QC Valid YES; Urine Pregnancy NEGATIVE (NEGATIVE)
[2024-02-04] MEDS: Aprepitant 32 MG/4.4 ML VIAL IVPUSH (06:45)
[2024-02-04] MEDS: Lactated Ringers 1,000 ML 999 ML IV (06:47)
--- NOTE | 2024-02-04 07:25 | PHA.MEDREC ---
Pharmacy Consult ? Medication Reconciliation Pharmacy has completed the medication reconciliation. Nurse med rec checked by pharmacy. sulcrafate and zofran for after surgery
--- NOTE | 2024-02-04 07:27 | MHC.SHP ---
Pre-Procedural Eval Section A - 24 Hr Update-Section A only Date of Service: 02/04/24 The patient is an INPATIENT: No The patient has been examined within 24 hours of the surgical procedure. The History & Physical has been completed within 30 days and I have reviewed it.: Yes Section B - Complete if H&P > 30 days Chief Complaint: Obesity Relevant Family History (Specify if Yes): No Relevant Social History: None Present Medications: None Medical History: No relevant PMH History of Previous Operations: No relevant previous surgery Allergies: Allergies Allergy/AdvReac Type Severity Reaction Status Date / Time No Known Allergies Allergy Verified 02/04/24 06:20 Review of Systems Sugical H&P ROS: Negative: Constitution, Cardiovascular, Respiratory, Neurological, Psychiatric, Hem-Onc, Allergic/Immunologic, Gastrointestinal, Genitourinary, Musculoskeletal, Integumentary, Endocrine and Eyes/Ears/Nose/Throat Exam Surgical H&P Exam: Normal: HEENT, Normal: Heart, Normal: Lungs, Normal: Extremities, Normal: Abdomen, Normal: Skin and Normal: Neurological Plan Diagnosis/Plan: Unchanged I have reviewed the history and physical and performed a pertinent physical examination on my patient. No changes have occurred unless specified. Time Spent With Patient Time: Total time managing care of this patient today ____ minutes.
--- NOTE | 2024-02-04 10:41 | P.DS_ITS ---
DS: Providers Provider Date of Service: 02/05/24 Date of admission: 02/04/24 06:16 Primary care physician: Rosemarie Jarvis MD DS: Summary Hospital Course Hospital Course: ADMITTING DIAGNOSIS: obesity, hypothyroid ? DISCHARGE DIAGNOSIS: same, s/p laparoscopic sleeve gastrectomy ? PAST SURGICAL HISTORY: none ? PROCEDURE: upper endoscopy, laparoscopic sleeve gastrectomy ? DISCHARGE SUMMARY: ? History of Present Illness: ? The patient is a?38 year-old woman with a BMI of?42.6 kg/m2 and associated co- morbidities as described above. The patient had extensive work-up,lost?42.3 lbs preoperatively and was electively scheduled for laparoscopic, possible open sleeve gastrectomy and gastropexy. Risks and complications of the surgery were discussed with the patient in advance, particularly the possibility of , pulmonary embolism, anastomotic leak, bleeding, bowel injury, GERD, cardiac, renal or pulmonary complications. The patient understood all the risks and was in agreement with the surgical plan. ? Hospital Course: ? The patient underwent an uneventful laparoscopic sleeve gastrectomy with gastropexy on the day of admission. Postoperatively, the patient was transferred to the surgical floor. The patient received IV Acetaminophen and IV dilaudid for pain control. Patient was started on bariatric phase 1 diet POD #0. On postope rative day one, the patient was feeling well without nausea, vomiting, fevers, or tachycardia. The patient had some mild incisional pain and the abdomen was soft. ? On the morning of postoperative day one, the patient was continued on 1 ounce of water or ice every half hour. During the day, the patient did fairly well, having some incisional pain, but able to ambulate adequately and to tolerate liquids well. ? Since the patient is doing well, we decided that the patient was ready to be discharged. The patient was given instructions to follow-up with me next week and to call my office for any fever over 101, persistent abdominal pain, nausea, vomiting, GERD, symptoms of DVT such as calf tenderness, or leg swelling, or pulmonary embolism such as chest pain or shortness of breath. The patient was also instructed to drink 40-60 ounces of liquids per day using the 1-ounce cups. The patient had been given prescriptions for Tylenol for pain, Zofran prn for nausea, and pantoprazole and carafate previously. The patient was encouraged to ambulate and use the incentive spirometer. The patient was allowed to shower, but no baths, and encouraged to stay active at home. All of these instructions were given to the patient personally. All questions were answered and the patient understood all instructions, the instructions were also given to the patient in print. Time Attestation Total time managing care of this patient today: 25 mintues. Discharge Coordination Time (in mins): 25 Quality: Safe Use of Opioids Does Pt have an Active Cancer Diagnosis on the Problem List?: No Quality: Stroke Does the patient have a stroke diagnosis?: No Physical Exam Vital Signs: Vital Signs: Last Vital Signs Temp 98.4 F 02/04/24 06:48 Pulse 67 02/04/24 06:48 Resp 15 02/04/24 06:48 BP 121/77 02/04/24 06:48 Pulse Ox 99 02/04/24 06:48 O2 Del Method Room Air 02/04/24 06:48 BMI result Body Mass Index 35.5 DS: Data Data Completed and Pending Pending studies at discharge: Pending at discharge 02/04/24 10:11 Surgical [PTH] Routine Labs on day of discharge: Laboratory Results - last 24 hr 02/04/24 06:20 Urine Test NEGATIVE Discharge Plan Discharge Anticipated Discharge Date/Time: 02/05/24 10:00 Patient Disposition: Home, Self-Care Discharge Diagnosis: s/p laparoscopic sleeve gastrectomy Referrals: Rosemarie Jarvis MD [Primary Care Provider] - 1 Week Discharge Medications: Continued hydroxyzine HCl 10 mg tablet 10 mg PO BEDTIME levothyroxine 125 mcg tablet 125 mcg PO DAILY pantoprazole 40 mg tablet,delayed release (DR/EC) 40 mg PO DAILY Qty: 90 0RF sucralfate 100 mg/mL suspension 10 ml PO BID Qty: 600 2RF ondansetron 4 mg tablet,disintegrating 4 mg PO Q12H Qty: 20 0RF Rx Instructions: Only take one every 12 hours as needed if you have nausea Discontinued vitamin A palmitate 3,000 mcg (10,000 unit) capsule 10,000 unit PO DAILY Qty: 60 0RF cholecalciferol (vitamin D3) 125 mcg (5,000 unit) capsule 125 mcg PO DAILY Qty: 90 0RF thiamine HCl (vitamin B1) 100 mg tablet 100 mg PO DAILY Qty: 90 0RF Discharge Orders: Discharge Order (Routine); Ordered 02/05/24 Ordered By: David Michelle Activity on Discharge: No heavy lifting Stand Alone Forms: Patient Portal Discharge page Print Language: Thai Care Plan Goals: weight loss Health Concerns: obesity Plan of Treatment: No tub baths, sex or returning to work until discussed at first post op appointment. No exercise, alcohol, tobacco or illegal drug use. Continue to use incentive spirometer hourly while awake. Walk in home for 5- 10 minutes every 2 hours during the first week. Follow all instructions in the bariatric handbook and call with any questions.Discharge Instructions 1. Please call your doctor or come back to the emergency room should any new symptoms arise. 2. You will receive a courtesy call from [facility] 24-48 hours after discharge. 3. Activity: abstain from alcohol, practice limited stair climbing, no bending, no driving, no exercise, no illicit substances, no lifting, no sex, no tub bath, no work. 4. Diet: continue as discussed with Dr. Michelle. 5. Dressing Change/Wound Care: Your incision is covered by clear bandages and guaze underneath. If the area is tender, you may apply an ice pack for short intervals (no more than 20 minutes on, followed by at least 20 minutes off). Do not apply heat. Do not use creams, lotions, or topical antibiotics unless instructed to do so by your surgeon. These can cause infection or allergic reaction. 6. Call your doctor if: - Your temperature exceeds 101.5 F - You experience excessive pain or swelling - You have an unexpected reaction to medication - You have excessive bleeding - You experience continued vomiting/nausea - Your incision begins to separate - Your incision shows signs of infection such as increased redness, swelling, excessive pain, heat, or drainage (light blood or clear fluid is normal) 7. General instructions: No lifting greater than 5 lbs for 1 week and not more than 20lbs the next 3?weeks. No driving until seen at the office in 5-7 days after surgery. If you do not move your bowels in the next 2 days, please tell?Dr. Michelle. Please walk around your home every hour or two to prevent blood clots from forming in your legs. You do not need to wake from sleeping to walk. Please sleep in a bed or couch to prevent kinking at the hips and knees. Please take your incentive spirometer (your lung quality assurance supervisor body) home with you and use it for the next few days to prevent pneumonia. You may shower, no hot tubs, baths or swimming pools.?Please follow the post op diet instructions you are?given by Dr Michelle? and text me daily at 5-6pm for an update.?If you have any issues or concerns or questions please communicate this to him via text.? The Celebrate shakes have all of the bariatric vitamins you need if you consume these shakes. If you are drinking other protein shakes, you will need to purchase the Celebrate multivitamins and calcium that are available in the hospital gift shop on the first floor of the main hospital.??Do not take anything without first discussing with Dr Michelle. Please make sure you are consuming at least 40 ounces of fluids per day starting the?day AFTER your discharge from the hospital. Always drink 1-2 ml per minute using the 5ml?syringe. If you drink faster you may experience?bloating,?gas pain, burping, nausea or heartburn. In that case please slow down your pace and use the syringe to?understand better the?proper?pace and volume of drinking. Do not hesitate to contact the office with any questions at . The patient's medical history has been reviewed and they are considered low risk for post op DVT and therefore DVT prophylaxis is not considered necessary. Travel after surgery was reviewed. The patient has not disclosed any travel plans during the first 30 days after surgery and they have been advised that within the first 30 days after surgery any bus, plane, train or car travel over 2 hours in duration is contraindicated due to the possibility of developing blood clots from immobility. Any travel, needs to include periods of ambulation of 10 minutes in duration every 2 hours.? The patient was instructed to discuss any plans for travel during this period with their bariatric surgeon. Assessment: stable s/p laparoscopic sleeve gastrectomy Discharge Date/Time: 02/05/24 09:28
[2024-02-04] MEDS: fentaNYL citrate/PF 100 MCG/2 ML VIAL 25 MCG IVPUSH (11:10)
[2024-02-04 11:24] LABS: Hematocrit 35.4 % (37.0-47.0); Hemoglobin 12.3 g/dl (12.0-16.0)
--- NOTE | 2024-02-04 11:32 | PM.OP ---
Brief Operative Note Date of Service: 02/04/24 Pre-op diagnosis: Severe obesity with comorbidities (see below) Post-op diagnosis: same Procedure: INITIAL PATIENT BMI ON PRESENTATION AT OUR OFFICE: 42.6 kg/m2 LAST BMI BEFORE SURGERY: 34.5 kg/m2 COMORBIDITIES: Hypothyroidism, GERD, anxiety ?The patient presented to the Weight Management Program with significant obesity that was negatively impacting the patient's comorbidities as listed above.? The program is a phased program with a special focus on preoperative medical weight management to promote substantial weight loss and prepare the patients for the second phase of the program: bariatric surgery. The patient participated in an intensive weekly lifestyle ?intervention and exercise program during which the patient ?has lost between the initial office visit and the last preoperative visit 41.3lbs, or 16.66% of initial actual body weight. It was deemed appropriate for the patient to now have bariatric surgery. In light of the current Covid-19 pandemic and the well documented strong association of obesity and increased risk of worse outcomes if infected with Covid-19 (REFERENCES:https://pubmed.ncbi.nlm.nih.gov/23347633/,?https://pubmed.ncbi.nlm.nih.gov/98108628/), any delay in undergoing bariatric surgery may lead to the patient's worsening health condition and increased?risk of more severe Covid-19 disease if infected. In addition a recent?study from [facility] published in [facility] on 04/30/2021 ([email or web address]) found that, among patients with obesity, substantial weight loss achieved with surgery was associated with improved outcomes of COVID-19 infection. The findings suggest that obesity can be a modifiable risk factor for the severity of COVID-19 infection. In addition, the patient met the BMI-criteria for bariatric surgery based on the BMI on initial presentation. The patient should not be penalized for achieving such weight loss because ?it is not sustainable long-term without surgical intervention and it was achieved in preparation for bariatric surgery ?under my direction and based on my published research ([email or web address]).[email or web address] and?[email or web address].soard.org/article/[email or web address])43130-X/pdf) ?that a 10% preoperative weight loss improves long-term weight loss after surgery and reduces perioperative complications.? Insurance carriers such as [facility] have endorsed my recommendations ?and have included in their policies criteria to include a 10% preoperative weight loss requirement. PROCEDURE: Esophago-gastroscopy laparoscopic lysis of adhesions, laparoscopic sleeve gastrectomy and laparoscopic gastropexy INDICATIONS: This is a 38 year-old female who was electively scheduled for laparoscopic, possibly open sleeve gastrectomy. The risks and complications of the procedure were discussed with the patient in advance, particularly the possibility of ; pulmonary embolism; staple line leak; bleeding; GERD; cardiac, pulmonary, or renal complications; as well as long-term problems such as insufficient weight loss, vitamin deficiency, strictures, or ulcers. The patient understood all the risks, and was in agreement to proceed with surgery. DESCRIPTION OF PROCEDURE: After informed consent was obtained from the patient, the patient was given preoperative antibiotics, and was transferred to the operating room. After successful induction of general anesthesia, pneumatic compression devices were placed on both lower extremities. An upper endoscopy was performed next. The oropharynx and esophagus appeared to be within normal limits. There was no diaphragmatic hernia present of moderate size consistent with the findings of the preoperative upper GI. The stomach was entered. Then after all fluid and air were suctioned and the stomach was fully decompressed, the scope was withdrawn and secured in the mid esophagus. The patient was then prepped and draped in the usual sterile manner, and abdominal access was established at the right upper quadrant with the Sonia technique. A 12 mm blunt port was inserted, and the abdomen was insufflated with CO2 to a pressure of 15 mmHg. Under direct visualization, additional ports were placed, specifically two 5 mm Versi-step ports to the left upper quadrant, and a 5 mm Versi-Step port to the right upper quadrant. 1% lidocaine plain was used to infiltrate all port sites as well as all fascia defects. Following that, the patient was placed in a steep reverse Trendelenburg position. An additional 5 mm port was placed to the right flank for the Mediflex retractor that was used to retract the left lobe of the liver. The gastro-esophageal fat pad was opened with the ultrasonic device (Thunderbeat, Olympus) and the anterior esophagus and hiatus were exposed. The angle of His was opened with the ultrasonic device the fundus of the stomach from any diaphragmatic and splenic attachments. I then opened the gastrocolic ligament between the transverse colon and the greater curvature of the stomach with the ultrasonic device to enter the lesser sac and facilitate the ligation of the short gastric vessels. I started at a mid-point along the greater curvature and using the Thunderbeat, all short gastric vessels were divided all the way to the angle of His until the left sherice was completely dissected at its entirety. I then divided the gastro-colic ligament distally to a distance of about 3-4 cm proximal to the pylorus. There were extensive congenital adhesions between the pancreas and posterior gastric wall. Dissection was extremely difficult and prolonged the procedure significantly because the splenic artery was densely adhrerent to the pancreas and the posterior gastric wall. Additonally the posterior gastric wall was adherent to the spleen. This required a very tedious dissection Those were lysed completely with the ultrasonic device. Adhesiolysis took approximately 60 min to complete. I was able to separate the stomach from the splenic artery and the spleen without any injury to the spleen or the artery and no iscemia at the splenic parenchyma.? The stomach was then divided transversely with two Endo STONE-45 purple, one STONE-45 orange load and three STONE-60 articulating purple loads using the SIGNIA stapler and SIGNIA and AEON loads. Every effort was made that the gastric sleeve had a tubular shape and an even caliber throughout. Once the sleeve resection was completed, the staple line of the gastric sleeve was reinforced with Hemoclips. The resected stomach was retrieved without difficulty from the Sonia port. A gastropexy was then performed in order to prevent postoperative GERD and partial gastric volvulus. Several interrupted 2.0 Surgidac sutures were placed between the sleeve's staple line and the previously divided greater omentum and gastro-colic ligament using the Endo-Stitch device. ?An upper endoscopy was performed. There was no narrowing at the GE junction. The scope was easily advanced all the way to the pylorus which was clearly visualized. There was no narrowing anywhere and the sleeve's caliber was even throughout. The sleeve's staple line was inspected and there was no evidence of ischemia, bleeding or dehiscence. At that point the gastroscope was withdrawn from the patient?s mouth while we were decompressing the bowel and the stomach from any remaining air. I looked into the lesser sac to see how the sleeve was situating and it was situating well. There was no bleeding from the staple line, spleen, or short gastric vessels. The Mediflex retractor was removed, and the undersurface of the liver was inspected and there was no bleeding. The patient was placed in supine position. I closed the fascial defect of the 12 mm port site with a figure of eight #1 Polysorb suture. Then 30cc Ropivacaine plain with 10 mg of Dexamethasone were used to infiltrate the fascial closure as well as all skin incisions. At this point, the abdomen was deflated, all ports were removed under direct vision, and no bleeding was noted from any of the port sites. The skin incisions were irrigated with saline and were closed with 4-0 absorbable monofilament sutures. Steri-Strips and OpSites were used to cover all incisions. The patient was extubated and was transferred in stable condition to the recovery room for further care. I was present and performed all land parts of the procedure. Mr. Chase was the diver assistant. There were no residents to assist with this case. Baljinder Michelle MD, PhD, FACS Surgeon: David Michelle MD Anesthesia: GETA, local and other (TAP block) Was an Financial Services Internship used for this Procedure?: No Financial Services Internship: Gomez Chase Estimated blood loss (mL): 10 IV fluids (mL): 2,500 Urine output (mL): 0 (No Hughes to record output) Pathology: other (Stomach) Condition: stable Disposition: PACU
[2024-02-04 11:34] LABS: Anion Gap 19 (12-20); Blood Urea Nitrogen 8 mg/dL (9-16); Carbon Dioxide 19 mmol/L (22-29); Chloride 102 mmol/L (96-108); Estimated Glomerular Filt Rate > 60; Glucose Random 106 mg/dL (60-115); Potassium 4.3 mmol/L (3.3-5.1); Sodium 136 mmol/L (135-145)
[2024-02-04] MEDS: Lactated Ringers 1,000 ML 100 ML IVCONT ×2 (11:45→20:58)
--- NOTE | 2024-02-04 12:06 | PM.PNGS ---
Subjective Subjective Date of Service: 02/05/24 Interval history: Feels well. Mild incisional pain. She is tolerating phase 1 bariatric diet Physical Exam Vital Signs: Vital Signs: Last Vital Signs Temp 97.7 F 02/04/24 11:44 Pulse 77 02/04/24 11:44 Resp 16 02/04/24 11:44 BP 134/80 02/04/24 11:44 Pulse Ox 97 02/04/24 11:44 O2 Del Method Room Air 02/04/24 11:44 O2 Flow Rate 6 02/04/24 10:55 BMI result Body Mass Index 33.6 GI: Inspection: Yes normal to inspection, Yes incision (clean, dry and intact) and Yes obesity Palpation (GI): Soft to palpation Extrem: Right lower extremity: normal to inspection (no calf tenderness) Left lower extremity: normal to inspection (no calf tenderness) Objective Data Active Medications Famotidine (Famotidine/Pf 20 Mg/2 Ml Vial) 20 mg IVPUSH BID JESÚS Hydromorphone HCl (Hydromorphone Hcl 0.5 Mg/0.5 Ml Syringe) 0.25 mg IVPUSH Q4H PRN; Protocol PRN Reason: Pain, Moderate(Pain Scale 4-6) Lactated Ringer's (Lr) 1,000 mls @ 100 mls/hr IVCONT .Q10H [facility] Cefazolin Sodium/Dextrose (Ancef) 2 gm in 50 mls @ 100 mls/hr IV POSTOP ONE Stop: 02/04/24 14:29 Acetaminophen (Ofirmev) 1,000 mg in 100 mls @ 16.7 mls/hr IV .Q6H [facility] Levothyroxine Sodium (Levothyroxine Sodium 125 Mcg Tablet) 125 mcg PO DAILY@0600 [facility] Metoclopramide HCl (Metoclopramide Hcl 10 Mg/2 Ml Vial) 10 mg IVPUSH Q6H PRN PRN Reason: Nausea no effect from zofran Ondansetron HCl (Ondansetron Hcl 4 Mg/2 Ml Vial) 4 mg IVPUSH Q8H PRN PRN Reason: Nausea Sodium Chloride (0.9 % Sodium Chloride Flush 3 Ml Syringe) 3 ml IVFLUSH QSHIFT [facility] Labs 02/05/24 05:16 02/05/24 05:16 Labs: Laboratory Results - last 24 hr 02/04/24 02/04/24 06:20 11:11 Anion Gap 19 Estim Creat Clear Calc 112.0 Estimated GFR > 60 Random Glucose 106 Calcium 9.0 D Urine Test NEGATIVE Procedures Date of Service Date of Service: 02/05/24 Progress Note: A&P Assessment and plan (1) S/P laparoscopic sleeve gastrectomy: Status: Acute Assessment and Plan: s/p laparoscopic sleeve gastrectomy, lysis of adhesions and gastropexy Doing well Will check am labs and if OK the patient will be discharged home (2) Obesity: Status: Acute (3) BMI 34.0-34.9,adult: Status: Acute (4) Hypothyroidism: Status: Acute (5) Anxiety: Status: Acute (6) GERD (gastroesophageal reflux disease): Status: Acute Time Spent With Patient Time: Total time managing care of this patient today ____ minutes. Quality Stroke Does the patient have a stroke diagnosis?: No VTE Prior VTE?: No VTE Risk Level:: Surgical - moderate VTE Device Contraindication: N/A - Device Ordered VTE Drug Contraindication: Treatment Not Indicated
[2024-02-04] MEDS: ceFAZolin Sodium/Dextrose,Iso 2 GM/50 ML PIGGYBACK IV (13:05)
[2024-02-04] MEDS: Acetaminophen 1,000 MG/100 ML PIGGYBACK 16.7 MG IV ×2 (14:01→19:41)
[2024-02-04] MEDS: Famotidine/PF 20 MG/2 ML VIAL IVPUSH (19:41)
[2024-02-05] MEDS: Acetaminophen 1,000 MG/100 ML PIGGYBACK 16.7 MG IV (01:24)
[2024-02-05 04:00] VITALS: BP 118/67; PULSE 71; RESP 18; TEMP 36.7; O2SAT 98
[2024-02-05] MEDS: Levothyroxine Sodium 125 MCG TABLET PO (05:08)
[2024-02-05] MEDS: Lactated Ringers 1,000 ML 100 ML IVCONT (05:09)
[2024-02-05 06:41] LABS: MANUAL DIFF FLAG NO
[2024-02-05 07:05] LABS: Basophils Percent Auto 0.2 % (0-2); Hematocrit 34.5 % (37.0-47.0); Hemoglobin 11.7 g/dl (12.0-16.0); Imm Gran Abs Auto 0.01 X10*3/uL (0.00-0.03); Imm Gran Pct Auto 0.2 % (0.0-0.4); Lymphocytes Absolute Auto 0.7 X10*3/uL (1.2-4.9); Lymphocytes Percent Auto 11.6 % (20-40); Mean Corpuscular HGB Conc 33.9 g/dl (31.0-35.0); Mean Corpuscular Hemoglobin 29.5 pg (27.0-33.0); Mean Corpuscular Volume 87.1 fL (80.0-98.0); Mean Platelet Volume 10.5 fL (9.4-12.3); Monocytes Absolute Auto 0.4 X10*3/uL (0.1-1.2); Monocytes Percent Auto 6.7 % (2-11); Neutrophils Absolute Auto 4.7 x10*3/uL (2.0-8.3); Neutrophils Percent Auto 81.3 % (45-73); Platelet Count 241 X10*3/uL (160-400); Red Blood Count 3.96 X10*6/uL (4.20-5.50); White Blood Count 5.8 X10*3/uL (4.8-10.8)
[2024-02-05] MEDS: Famotidine/PF 20 MG/2 ML VIAL IVPUSH (07:06)
[2024-02-05 07:07] LABS: Anion Gap 17 (12-20); Blood Urea Nitrogen 5 mg/dL (9-16); Calcium 9.4 mg/dL (8.4-10.2); Carbon Dioxide 22 mmol/L (22-29); Chloride 103 mmol/L (96-108); Estimated Glomerular Filt Rate > 60; Glucose Random 116 mg/dL (60-115); Potassium 4.5 mmol/L (3.3-5.1); Sodium 137 mmol/L (135-145)
[2024-02-05 07:24] LABS: Thyroid Stimulating Hormone 0.38 uIU/mL (0.32-4.0)
--- NOTE | 2024-02-05 07:56 | HO.POSTANES ---
Post Anesthesia Evaluation Post Anesthesia Evaluation Date of Service: 02/05/24 Vital Signs: Vital Signs Temp Pulse Resp BP Pulse Ox O2 Del Method 02/05/24 04:00 98.1 F 71 18 118/67 98 Room Air 02/04/24 23:09 98.5 F 71 18 121/64 97 Room Air Anesthesia: General Endotracheal-GETA Mental Status: Awake Pain Control: Satisfactory Nausea/Vomiting: None Hydration: Adequate Anesthesia-Related Issues: No Anes. Related Issues
[2024-02-05 08:00] VITALS: BP 115/71; PULSE 60; RESP 16; TEMP 36.6; O2SAT 99
--- NOTE | 2024-02-05 08:39 | MHC.CM.PN ---
Female 38 s/p Gastric sleeve Lives with a friend. Independent with all activity. A HCP has been documented and is on file. DP home self care friend will provide transportation home . Discharge is anticipated today per pt report.
== END 2024-02-05 09:28 | disposition home or self-care (01) | DRG 620 ==
LOC: HO.SSSA 10:43 → HO.S3 10:57
PROVIDERS: Nurse Practitioner; Physician Assistant Surgical; Admitting Provider Surgery; PCP Internal Medicine; Visit Provider Surgery
PROC: 0DB64Z3 Excision of Stomach, Percutaneous Endoscopic Approach, Vertical (ICD-10-PCS; CPT 43845; principal; 2024-02-04 07:30)
DX: E66.01 Morbid (severe) obesity due to excess calories (principal); Q43.3 Congenital malformations of intestinal fixation; E03.9 Hypothyroidism, unspecified; K21.9 Gastro-esophageal reflux disease without esophagitis; F41.9 Anxiety disorder, unspecified; F17.210 Nicotine dependence, cigarettes, uncomplicated; Z71.6 Tobacco abuse counseling; Z68.34 Body mass index [BMI] 34.0-34.9, adult; Z79.890 Hormone replacement therapy; Z79.899 Other long term (current) drug therapy
CPT/HCPCS: 43775; 43659; 36415; 80048; 80053; 80061; 81025; 83036; 83525; 84439; 84443; 85014; 85018; 85025; 85610; 85730; 86140; 86850; 86900; 86901; 88304; 88305; 88307; 88342; A4649; C9145; J0131; J0690; J1100; J1171; J2003; J2250; J2371; J2405; J2704; J2795; J3010; J7120

== ENCOUNTER → 2024-02-04 06:16 | Outpatient (BNV) | payer OTHER, SELFPAY | PROVIDERS: Admitting Provider Surgery; PCP Internal Medicine; Visit Provider Surgery | DX: E66.09 Other obesity due to excess calories (principal); Z68.34 Body mass index [BMI] 34.0-34.9, adult; Z98.84 Bariatric surgery status | CPT/HCPCS: 43659; 43775; 99024; 99499 ==

== ENCOUNTER 2024-02-11 13:55 | Outpatient (AMB) | payer OTHER, SELFPAY ==
--- NOTE | 2024-02-11 14:04 | MHC.OFFVISWM ---
VS Expanded 02/11/24 14:14 BP 133/85 Blood Pressure Location Rt brachial Blood Pressure Position Sitting Pulse 80 Pulse Source Pulse Oximeter Temp 98.4 F Temperature Source Temporal Artery Scan Pulse Oximetry 100 Oxygen Delivery Method Room Air Height 5 ft 4 in Weight 191 lb 12.8 oz BMI 32.9 Body Fat % 44.5 Body Fat Mass 85.4 Fat Free Mass 106.2 Visceral Fat Rating 9.0 Body Water % 39.8 Body Water Mass 76.2 Muscle Mass/Score 101.0 Basal Metabolic Rate/Score 1,513 Intake Visit Reasons: (OV) PO LSG 02/04/24 Cartography Professor Required: Yes Cartography Professor Services: Cartography Professor Present Cartography Professor Name: hospital cmi Allergies No Known Allergies Allergy (Verified 02/11/24 14:08) HPI Comments Details: Patient is a pleasant 38-year-old female who returns to the office today in follow-up. She is 7 days post sleeve gastrectomy performed on 02/04/2024. She is tolerating 3 celebrate 4 in 1 shakes with 1 scoop each and proximally 40-50 oz of fluids. She has moved her bowels and offers no complaints of pain. [facility] Medical History (Updated 02/04/24 @ 12:07 by David Michelle MD) Anxiety Obesity Hypothyroidism Morbid obesity Surgical History (Updated 02/11/24 @ 14:09 by Bethany Payton CMA) S/P laparoscopic sleeve gastrectomy History of esophagogastroduodenoscopy (EGD) Social History Household Members: Friend(s) Housing: Apartment Are you a primary managed care specialist to a significant other at home: No Do you presently have visiting nurse or other home services: No Patient Tobacco Use Status: Current everyday Tobacco user service: No Physical Exam GI Inspection: Yes incision (Clean, dry, intact.) Assessment & Plan Assessment & Plan (1) S/P laparoscopic sleeve gastrectomy: Code(s): Z98.84 - Bariatric surgery status Category: Surgical Plan: POD 7 s/p LSG on 02/04/[address] Michelle Weight loss prior to surgery was 42.3 pounds or 17 % TBWL. Original weight on 09/12/2023 was 248.2 pounds and op weight was 205.9 pounds. Be sure to text Dr Michelle exactly 1 week after surgery your weight from your home scale so he can adjust your meal plan. Continue meal plan until f/u w Elif in 2 weeks May shower, no submersion in bath for another week Continue abdominal binder with activity and exercise for the next 2 weeks. Exercise prior to surgery was treadmill and may resume No abdominal exercises for 6 weeks post operatively Will be emailed link to post op video for review Reminded of the pace of drinking, 2 mL per minute, 1 oz/15 min.
[2024-02-11 14:14] VITALS: BP 133/85; PULSE 80; TEMP 36.9; O2SAT 100; BMI 32.9
== END 2024-02-11 14:31 | disposition home or self-care (01) ==
PROVIDERS: PCP Internal Medicine; Visit Provider Physician Assistant Surgical
DX: Z98.84 Bariatric surgery status (principal)
CPT/HCPCS: 99024

== ENCOUNTER → 2024-02-11 13:55 | Outpatient (BNVA) | payer OTHER, SELFPAY | PROVIDERS: PCP Internal Medicine; Visit Provider Physician Assistant Surgical ==

== ENCOUNTER 2024-03-01 12:41 | Outpatient (AMB) | payer OTHER, SELFPAY ==
--- NOTE | 2024-03-01 12:52 | A.OFFVIS_ITS ---
VS Expanded 03/01/24 12:58 BP 129/76 Blood Pressure Location Rt brachial Blood Pressure Position Sitting Pulse 78 Pulse Source Pulse Oximeter Temp 98.2 F Temperature Source Temporal Artery Scan Pulse Oximetry 100 Oxygen Delivery Method Room Air Height 5 ft 4 in Weight 187 lb 9.6 oz BMI 32.2 Body Fat % 43.3 Body Fat Mass 81.2 Fat Free Mass 106.2 Visceral Fat Rating 9.0 Body Water % 40.7 Body Water Mass 76.2 Muscle Mass/Score 101.0 Basal Metabolic Rate/Score 1,506 Intake Visit Reasons: (OV) PO LSG 02/04/24 see note Automobile Radio Repairer Required: Yes Automobile Radio Repairer Name: Shelbi [id number] Information Interpreted: clinical only Allergies No Known Allergies Allergy (Verified 03/01/24 12:54) Medication List - Last Reconciled 03/01/24 by NANCY Maria hydroxyzine HCl 10 mg PO BEDTIME levothyroxine 125 mcg PO DAILY ondansetron 4 mg PO Q12H pantoprazole 40 mg PO DAILY sucralfate 10 mL PO BID HPI Comments Details: This?is a?38?yo female who is s/p LSG 02/04/2024. Presents for 3 week post op visit. Weight at last visit on 02/11/2024 was 191.8 pounds with a BMI of 32.9, weight today is 187.6 pounds, representing a 4.2 pound weight loss with a BMI today of 32.2.? No complaints of nausea, emesis, abdominal pain or reflux, or constipation. Present meal plan includes: 3 protein shakes, 1 bar using Celebrate 4:1 powder for shakes hydration is adequate Exercise routine includes: walking 3x/week PFSH Medical History (Updated 02/13/24 @ 00:02 by Ibrahima Phipps) Anxiety Obesity Hypothyroidism Morbid obesity Surgical History S/P laparoscopic sleeve gastrectomy History of esophagogastroduodenoscopy (EGD) Social History (Updated 03/01/24 @ 12:55 by Bethany Payton CMA) Household Members: Friend(s) Housing: Apartment Are you a primary primary care sales representative to a significant other at home: No Do you presently have visiting nurse or other home services: No Alcohol intake: current Alcohol intake frequency: does not drink Patient Tobacco Use Status: Former Tobacco user service: No Physical Exam Vital Signs: Last Vital Signs Temp 98.2 F 03/01/24 12:58 Pulse 78 03/01/24 12:58 BP 129/76 03/01/24 12:58 Pulse Ox 100 03/01/24 12:58 Oxygen Delivery Method Room Air 03/01/24 12:58 BMI result Body Mass Index 32.2 Assessment & Plan Assessment & Plan (1) S/P laparoscopic sleeve gastrectomy: Code(s): Z98.84 - Bariatric surgery status Category: Surgical (2) Obesity: Code(s): E66.9 - Obesity, unspecified Category: Medical Qualifiers: Obesity type: due to excess calories Obesity classification: adult class 1 (BMI 30 - 34.9) Serious obesity comorbidity presence: with serious comorbidity Body mass index: BMI 34.0-34.9 Qualified Code(s): E66.09 - Other obesity due to excess calories; Z68.34 - Body mass index [BMI] 34.0-34.9, adult Plan Pt to continue meal plan per Dr. Christianson Increase exercise goal 2000 severino/week. Discussed lifiting restrictions until 6 weeks postop. 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 RTC 1 month. I spent a total of 30 minutes reviewing/updating records, examining the patient and counseling the patient on weight management as detailed above.
[2024-03-01 12:58] VITALS: BP 129/76; PULSE 78; TEMP 36.8; O2SAT 100; BMI 32.2
== END 2024-03-01 13:12 | disposition home or self-care (01) ==
LOC: HO.HBS 12:42
PROVIDERS: PCP Internal Medicine; Visit Provider Physician Assistant Surgical
DX: E66.09 Other obesity due to excess calories (principal); Z68.34 Body mass index [BMI] 34.0-34.9, adult; Z98.84 Bariatric surgery status
CPT/HCPCS: 99024

== ENCOUNTER → 2024-03-01 12:41 | Outpatient (BNVA) | payer OTHER, SELFPAY | PROVIDERS: PCP Internal Medicine; Visit Provider Physician Assistant Surgical ==

== ENCOUNTER 2024-03-23 09:41 | Outpatient (AMB) | payer OTHER, SELFPAY ==
--- NOTE | 2024-03-23 09:36 | MHC.OFFVISWM ---
VS Expanded 03/23/24 09:39 Height 5 ft 4 in Weight 182 lb BMI 31.2 Intake Visit Reasons: TELEPHONE PO LSG 02/04/88 Filling Hauler Weaving Required: Yes Filling Hauler Weaving Name: Bridget [id number] Allergies No Known Allergies Allergy (Verified 03/01/24 12:54) Medication List - Last Reconciled 03/23/24 by NANCY Maria hydroxyzine HCl 10 mg PO BEDTIME levothyroxine 125 mcg PO DAILY pantoprazole 40 mg PO DAILY sucralfate 10 mL PO BID HPI Comments Details: This?is a?38?yo female who is s/p LSG 02/04/2024. Presents for 6 week post op visit. Weight at last visit was 187.6 pounds with a BMI of 32.2, weight today is 182 pounds, representing a 5.6 pound weight loss with a BMI today of 31.2.? No complaints of nausea, emesis, abdominal pain or reflux, or constipation. Present meal plan includes: 3 shakes- 1 with 1 scoop, 2 with half scoop 1 protein bar started scrambled eggs, tolerated well hydration is adequate Exercise routine includes: walking- 2-3x/week just started a second job [facility] Medical History (Updated 02/13/24 @ 00:02 by Ibrahima Phipps) Anxiety Obesity Hypothyroidism Morbid obesity Surgical History S/P laparoscopic sleeve gastrectomy History of esophagogastroduodenoscopy (EGD) Social History (Updated 03/01/24 @ 12:55 by Bethany Payton CMA) Household Members: Friend(s) Housing: Apartment Are you a primary urgent care physician to a significant other at home: No Do you presently have visiting nurse or other home services: No Alcohol intake: current Alcohol intake frequency: does not drink Patient Tobacco Use Status: Former Tobacco user service: No Assessment & Plan Assessment & Plan (1) S/P laparoscopic sleeve gastrectomy: Code(s): Z98.84 - Bariatric surgery status Category: Surgical (2) Obesity: Code(s): E66.9 - Obesity, unspecified Category: Medical Qualifiers: Obesity type: due to excess calories Obesity classification: adult class 1 (BMI 30 - 34.9) Serious obesity comorbidity presence: with serious comorbidity Body mass index: BMI 34.0-34.9 Qualified Code(s): E66.09 - Other obesity due to excess calories; Z68.34 - Body mass index [BMI] 34.0-34.9, adult Plan Pt will continue meal plan per Dr. Alejo. Will try to increase exercise as able. Discussed expected duration of PPI/carafate. Cleared for all activity, no restrictions. RTC 4-6 weeks. I spent a total of 30 minutes reviewing/updating records, examining the patient and counseling the patient on weight management as detailed above.
[2024-03-23 09:39] VITALS: BMI 31.2
== END 2024-03-23 10:01 | disposition home or self-care (01) ==
LOC: HO.HBS 09:41
PROVIDERS: PCP Internal Medicine; Visit Provider Physician Assistant Surgical
DX: E66.09 Other obesity due to excess calories (principal); Z98.84 Bariatric surgery status; Z68.34 Body mass index [BMI] 34.0-34.9, adult
CPT/HCPCS: 99024

== ENCOUNTER 2024-05-10 13:33 | Outpatient (AMB) | payer OTHER, SELFPAY ==
--- NOTE | 2024-05-10 12:43 | MHC.OFFVISWM ---
VS Expanded 05/10/24 13:35 Height 5 ft 4 in Weight 164 lb BMI 28.1 Intake Visit Reasons: TELEPHONE PO LSG 02/04/24 Quarry Supervisor Dimension Stone Required: Yes Quarry Supervisor Dimension Stone Name: Bridget [id number] Allergies No Known Allergies Allergy (Verified 03/01/24 12:54) Medication List - Last Reconciled 05/10/24 by NANCY Maria hydroxyzine HCl 10 mg PO BEDTIME levothyroxine 125 mcg PO DAILY HPI Comments Details: This?is a?38?yo female who is s/p LSG 02/04/2024. Presents for 3 month post op visit. Weight at last visit on 03/23/2024 was 182 pounds with a BMI of 31.2, weight today is 164 pounds, representing a 18 pound weight loss with a BMI today of 28.2.? No complaints of nausea, emesis, abdominal pain or reflux, or constipation. Present meal plan includes: 3 shakes- 1 with 1 scoop, 2 with half scoop 1 protein bar 1 small meal protein/veg hydration is adequate Exercise routine includes: started a second job, but has been able to walk more on the treadmill than she was doing previous Pt reports some excess skin of arms and legs. No rashes currently PFSH Medical History (Updated 05/10/24 @ 13:42 by NANCY Maria) Anxiety Obesity Hypothyroidism Morbid obesity Surgical History S/P laparoscopic sleeve gastrectomy History of esophagogastroduodenoscopy (EGD) Social History (Updated 03/01/24 @ 12:55 by Bethany Payton CMA) Household Members: Friend(s) Housing: Apartment Are you a primary career development coordinator/teacher to a significant other at home: No Do you presently have visiting nurse or other home services: No Alcohol intake: current Alcohol intake frequency: does not drink Patient Tobacco Use Status: Former Tobacco user service: No Telehealth Telehealth Telehealth Platform: Telephone Location of provider rendering services: other Location of patient: address on file Patient Identification confirmed using: Name, : Yes Telehealth method: video Patient verbally consented to treatment: Yes Patient verbally consented to billing insurance company: Yes Patient informed of any privacy concerns related to visit: Yes Minutes spent on Phone/Video with Pt.: 14 Assessment & Plan Assessment & Plan (1) S/P laparoscopic sleeve gastrectomy: Code(s): Z98.84 - Bariatric surgery status Category: Surgical (2) Overweight: Code(s): E66.3 - Overweight Category: Medical Plan No longer obese. Off PPI/carafate, no reflux. Will continue meal plan per Dr. Christianson Pt has increased exercise on treadmill. RTC 6 weeks. I spent a total of 30 minutes reviewing/updating records, examining the patient and counseling the patient on weight management as detailed above.
[2024-05-10 13:35] VITALS: BMI 28.1
== END 2024-05-10 13:59 | disposition home or self-care (01) ==
LOC: HO.HBS 13:33
PROVIDERS: PCP Internal Medicine; Visit Provider Physician Assistant Surgical
DX: E66.3 Overweight (principal); Z68.28 Body mass index [BMI] 28.0-28.9, adult; Z90.3 Acquired absence of stomach [part of]; Z98.84 Bariatric surgery status
CPT/HCPCS: 99214

== ENCOUNTER → 2024-05-10 13:33 | Outpatient (BNVA) | payer OTHER, SELFPAY | PROVIDERS: PCP Internal Medicine; Visit Provider Physician Assistant Surgical ==

== ENCOUNTER 2024-06-10 15:00 | Outpatient (REF) | payer OTHER, SELFPAY ==
--- OUTSIDE RECORDS SUMMARY | 2024-06-10 15:04 | XMS_ITS | Clinical Summary ---
Author Organization [employer] Address [address] [place] [address] Care Team Providers Care Conference Interpreter Name Role Phone Danelle Bailey MD Unavailable Tosin Gómez NP Primary Care Provider +1- [phone] Allergies No known active allergies Medications Medication Sig Dispensed Refills Start Date End Date Status acetaminophen (TYLENOL) 500 mg tablet TAKE 2 TABLETS BY MOUTH EVERY 8 HOURS NEEDED FOR PAIN OR FEVER. 01/02/2021 Active hydrOXYzine HCL (ATARAX) 10 mg tabletIndications:S ituational anxiety,Annual physical exam Take 1 tablet (10 mg total) by mouth every 8 (eight) hours if needed for anxiety Take at bedtime if needed for anxiety, may cause drowsiness, do not drive or operate machinery until you know how this medication affects you 60 tablet 1 07/16/2022 Active ergocalciferol (VITAMIN D-2) 1,250 mcg (50,000 unit) capsuleIndications: Vitamin D deficiency Take 1 capsule (50,000 Units total) by mouth 1 (one) time per week X 8 weeks 8 capsule 08/07/2022 Active levothyroxine (SYNTHROID) 125 mcg tablet PLEASE SEE ATTACHED FOR DETAILED DIRECTIONS 08/12/2022 Active Active Problems Problem Noted Date Diagnosed Date Cervicalgia of usuxrttu-bafhwfm-vpxqy region 11/2021 Obesity (BMI 30-39.9) 02/15/2021 Intermittent palpitations 02/15/2021 Situational anxiety 02/15/2021 Hypothyroidism 01/04/2021 Resolved Problems Problem Noted Date Diagnosed Date Resolved Date Disease due to severe acute respiratory syndrome coronavirus 2 (SARS-CoV-2) 12/25/2020 0407/2022 Family History Medical History Relation Comments Diabetes Father Hypertension Father Hypertension Mother Relation Status Comments Father Alive Mother Alive Social History Tobacco Use Types Packs/Day Years Used Date Smoking Tobacco: Former Smokeless Tobacco: Never Tobacco Cessation:Counseling Given: Not Answered Alcohol Use Standard Drinks/Week Comments Yes 0 (1 standard drink = 0.6 oz pur e alcohol) social PHQ-2 Answer Date Recorded Depression Risk (PHQ2) Score 1 08/2022 Sex and Gender Information Value Date Recorded Sex Assigned at Not on file Gender Identity Not on file Sexual Orientation Not on file Job Start Date Occupation Industry Not on file Not on file Not on file Last Filed Vital Signs Vital Sign Reading Time Taken Comments Blood Pressure 124/81 08/06/2022 2:54 PM EDT Pulse 76 08/06/2022 2:54 PM EDT Temperature 37 ??C (98.6 ??F) 08/06/2022 2:54 PM EDT Respiratory Rate - - Oxygen Saturation 98% 08/06/2022 2:54 PM EDT Inhaled Oxygen Concentration - - Weight 112 kg (246 lb 6.4 oz) 08/06/2022 2:54 PM EDT Height 164 cm (5' 4.57 ) 08/02/2021 2:52 PM EDT Body Mass Index 41.55 08/02/2021 2:52 PM EDT Plan of Treatment Health Maintenance Due Date Last Done Comments Hepatitis C Screening 1987 PHQ-9 Depression Screen 1999 HOLLEY-7 Anxiety Screen 07/08/2005 DTaP,Tdap,and Td Vaccines (1 - Tdap) 07/08/2006 Annual Preventive Exam 08/07/2023 , 08/02/2021, 05/31/2020, Additional history exists COVID-19 Vaccine ( - 2023-2 5 season) 2024 Influenza Vaccine (#1) 2024 Cervical Cancer Screening (Pap/HPV) 08/02/2026 08/02/2021, 08/02/2021 RSV Vaccine (SCDM) (1 - 1-do se 75+ series) 07/08/2062 Procedures Procedure Name Priority Date/Time Associated Diagnosis Comments IGP APTIMA HPV AGE GUIDELINE Routine 08/02/2021 3:35 PM EDT Annual physical exam Screening for cervical cancer from Last 3 Months or Most Recently Relevant to Health Maintenance Results * IGP Age-Based Guideline for Cervical Cancer Aptima (LCA = [id number]) PAP ONLY NO STD SCREENING (08/02/2021 3:35 PM EDT) Age Gdln ACOG Testing 30-65 [facility] Swab 08/02/2021 3:35 PM EDT 08/03/2021 5:00 AM EDT Narrative [facility] - 08/08/2021 10:11 AM EDT Performed at: ??01 - [facility] [address] ??[id number] House Servant: Nacho Peraza MD, Phone: ??[phone] Specimen Comment: Source.............Endocervix Specimen Comment: No. of containers..01 ThinPrep Vial Tosin Gómez NP LAB CYTOLOGY ORDER MONIQUE [facility] from Last 3 Months or Most Recently Relevant to Health Maintenance Care Teams Conference Interpreter Relationship Specialty Start Date End Date Tosin Gómez NP [address] [place] [address] PCP - General Family Medicine 05/01/21 Danelle Bailey MD [address] [address] Consulting Physician Endocrinology 04/26/21
--- OUTSIDE RECORDS SUMMARY | 2024-06-10 15:04 | XMS_ITS | Encounter Summary ---
Author Organization [employer] Address [address] [place] [address] Care Team Providers Care Supervisor Lace Tearing Name Role Phone Danelle Bailey MD Unavailable Tosin Gómez CRAFT ARTIST Primary Care Provider +1- [phone] Reason for Visit * Reason Comments Med Refill Encounter Details Date Type Department Care Team (Late st Contact Info) Description 10/14/[address] [address] Tosin Gómez NP [address] [place] [address] Hypothyroidism, unspecified type Social History Tobacco Use Types Packs/Day Years Used Date Smoking Tobacco: Former Smokeless Tobacco: Never Alcohol Use Standard Drinks/Week Comments Yes 0 [...] file Not on file Not on file documented as of this encounter Plan of Treatment Not on file documented as of this encounter Visit Diagnoses Diagnosis Hypothyroidism, unspecified type documented in this encounter Care Teams Supervisor Lace Tearing Relationship Specialty Start Date End Date Tosin Gómez NP [address] [place] [address] PCP - General Family Medicine 05/01/21 Danelle Bailey MD [facility] [address] [address] Consulting Physician Endocrinology 04/26/21 documented as of this encounter
--- OUTSIDE RECORDS SUMMARY | 2024-06-10 15:04 | XMS_ITS | Encounter Summary ---
Author Organization [employer] Address [address] [place] [address] Care Team Providers Care Field Health Officer Name Role Phone Danelle Bailey MD Unavailable Tosin Gómez CANDLES POURER Primary Care Provider +1- [phone] Reason for Visit * Reason Comments Med Refill Encounter Details Date Type Department Care Team (Late st Contact Info) Description 08/28/[address] [address] Tosin Gómez NP [address] [place] [address] Situational anxiety Social History Tobacco Use Types Packs/Day Years [...] as of this encounter Visit Diagnoses Diagnosis Situational anxiety documented in this encounter Care Teams Field Health Officer Relationship Specialty Start Date End Date Tosin Gómez NP [address] [place] [address] PCP - General Family Medicine 05/01/21 Danelle Bailey MD [facility] [address] [address] Consulting Physician Endocrinology 04/26/21 documented as of this encounter
--- OUTSIDE RECORDS SUMMARY | 2024-06-10 15:04 | XMS_ITS | Clinical Summary ---
Author Organization [address] [facility] Address [address] [place] [address] Phone Care Team Providers Care Svp Chief Marketing Officer Name Role Phone Val Palacio MD Primary Care Pr ovider Allergies No known active allergies Medications Medication Sig Dispensed Refills Start Date End Date Status hydrOXYzine HCL (ATARAX) 10 mg tablet Take 1 Tablet by mouth at bedtime as needed (anxiety). 01/09/2024 Active ondansetron (ZOFRAN) 4 mg tablet Take 4 mg by mouth every 12 hours as needed. Active sucralfate (CARAFATE) 100 mg/mL suspension Take 10 mL (1 g total) by mouth 4 (four) times a day. Active polyethylene glycol (MIRALAX) 17 gram packetIndications:Con stipation, unspecified constipation type Take 17 g by mouth 1 (one) time each day if needed for constipation. 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 twice daily Obesity (BMI 30.0-34.9) 02/23/2024 Assessment & Plan (04/14/2024 4:08 PM EST): She is s/p bariatric surgery; has lost an additional 16lbs since her surgery Continue follow up with [facility] weight management Anxiety 12/13/2022 Assessment & Plan (04/14/2024 4:08 PM EST): Continue hydroxyzine 10 mg nightly as needed Hypothyroidism 05/14/2017 Assessment & Plan (04/14/2024 4:08 PM EST): Continue Levothyroxine 125 mcg daily Last TSH: wnl in February. 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; Anxiety; Obesity (BMI 30.0-34.9); S/P bariatric surgery; Vitamin D deficiency; Need for hepatitis C screening test; Constipation, unspecified constipation type 03/11/2024 2:40 PM EST Consult Gastroenterology - [place] [address] [facility] 175 [facility] [address] [place] [address] Juarez Lemus PA S/P gastric sleeve procedure (Primary Dx); Gastroesophageal reflux disease with esophagitis without hemorrhage; Cricopharyngeal achalasia from Last 3 Months Surgical History Surgery Date Site/Laterality Comments BARIATRIC SURGERY 02/04/2024 PROCEDURE: CO LAPS GSTRC RSTRICTIV PX LONGITUDINAL GASTRECTOMY; COMMENT: done at [facility] Medical History Medical History Date Comments History of cellulitis 09/15/2015 DX:History of cellulitis; COMMENT: Elbow Eczema 09/15/2015 DX:Eczema Erythema migrans (Lyme disease) 09/19/2015 DX:Erythema migrans (Lyme disease) Vitamin D deficiency 03/10/2017 DX:Vitamin D deficiency Hypothyroidism 05/14/2017 DX:Hypothyroidis m Morbid obesity with BMI of 4 0.0-44.9, adult ([facility]) 09/14/2015 DX:Morbid obesity with BMI o f 40.0-44.9, adult ([facility]) Family History Medical History Relation Name Comments Diabetes Father Thyroid disease Mother Relation Name Status Comments Father Mother Social History Tobacco Use Types Packs/Day Years Used Date Smoking Tobacco: Some Days Smokeless Tobacco: Never Tobacco Cessation:Ready to Q uit: Not Asked; Counseling Given: Not Answered Alcohol Use Standard Drinks/Week Comments Yes 0 (1 standard drink = 0.6 oz pur e alcohol) Sex and Gender Information Value Date Recorded Sex Assigned at Not on file Gender Identity Not on file Sexual Orientation Not on file Job Start Date Occupation Industry Not on file Not on file Not on file Obstetrics History Last Filed Vital Signs Vital Sign Reading Time Taken Comments Blood Pressure 104/74 04/14/2024 3:14 PM EST Pulse 61 04/14/2024 3:14 PM EST Temperature 36.5 ??C (97.7 ??F) 04/14/2024 3:14 PM ES T Respiratory Rate 14 04/14/2024 3:14 PM EST Oxygen Saturation 98% 03/11/2024 2:49 PM EST Inhaled Oxygen Concentration - - Weight 81.2 kg (179 lb) 04/14/2024 3:14 PM EST Height 162.6 cm (5' 4 ) 04/14/2024 3:14 PM EST Body Mass Index 30.73 04/14/2024 3:14 PM EST Plan of Treatment Upcoming Encounters Date Type Department Care Team (Late st Contact Info) Description 10/05/2024 3:30 PM EDT Office Visit Adult Medicine [address] [phone] Rosalia Grace PA [address] [place] [address] Health Maintenance Due Date Last Done Comments Hepatitis B Vaccines (1 of 3 - 19+ 3-dose series) 07/08/2006 Depression Screening 04/03/2022 HIV Screening 04/03/2022 Hepatitis C Screening 04/03/2022 Social Influencers of Health Screening 04/03/2022 Hypertension/CHF/CAD Annual BMP Blood Test 03/11/2024 12/16/2022 Cervical Cancer Screening: P ap Smear 08/02/2024 08/02/2021 Cholesterol Screening (Lipid Panel) 06/03/2025 06/03/2020 COVID-19 Vaccine Discontinued DTaP,Tdap,and Td Vaccines Discontinued HIB Vaccines Aged Out No longer eligi ble based on patient's age to complete this topic HPV Vaccines Aged Out No longer eligi ble based on patient's age to complete this topic Hepatitis A Vaccines Aged Out No long er eligible based on patient's age to complete this topic IPV Vaccines Aged Out No longer eligi ble based on patient's age to complete this topic Influenza Vaccine Discontinued MMR Vaccines Aged Out No longer eligi ble based on patient's age to complete this topic Meningococcal ACWY Vaccine Aged Out N o longer eligible based on patient's age to complete this topic Pneumococcal Vaccine: Pediat rics (0 to 5 Years) and At-Risk Patients (6 to 64 Years) Discontinued RSV Immunization Patients Un nick 20 months Aged Out No longer eligible b ased on patient's age to complete this topic Varicella Vaccines Aged Out No longer eligible based on patient's age to complete this topic Procedures Procedure Name Priority Date/Time Associated Diagnosis Comments ANNUAL BMP BLOOD TEST Routine 12/16/2022 LIPID PANEL Routine 06/03/2020 from Last 3 Months or Most Recently Relevant to Health Maintenance Results * Annual BMP Blood Test (12/16/2022) Pathologist [facility] Annual BMP Blood Test abstracted Historical Provider MD MINA Mondragon * (ABNORMAL) Lipid panel (06/03/2020) [facility] LDL/HDL Ratio 3 0 - 4 Triglycerides 41 0 - 150 mg/dL Cholesterol 196 0 - 200 mg/dL HDL 57 40 mg/dL LDL Cholesterol 131(A) 0 - 100 mg/dL Blood Venous blood specimen / Unknown Historical Provider LAB BLOOD ORDERAB LES from Last 3 Months or Most Recently Relevant to Health Maintenance Care Teams Svp Chief Marketing Officer Relationship Specialty Start Date End Date Val Palacio MD [address] [place] [address] PCP - General Internal Medicine 03/02/24
[2024-06-10 15:20] LABS: MANUAL DIFF FLAG NO
[2024-06-10 15:45] LABS: Basophils Percent Auto 0.6 % (0-2); Eosinophils Absolute Auto 0.1 X10*3/uL (0.0-0.4); Eosinophils Percent Auto 1.3 % (0-4); Hematocrit 36.3 % (37.0-47.0); Hemoglobin 12.1 g/dl (12.0-16.0); Lymphocytes Absolute Auto 2.1 X10*3/uL (1.2-4.9); Mean Corpuscular HGB Conc 33.3 g/dl (31.0-35.0); Mean Corpuscular Hemoglobin 29.6 pg (27.0-33.0); Mean Corpuscular Volume 88.8 fL (80.0-98.0); Mean Platelet Volume 10.4 fL (9.4-12.3); Monocytes Absolute Auto 0.5 X10*3/uL (0.1-1.2); Monocytes Percent Auto 9.8 % (2-11); Neutrophils Absolute Auto 2.2 x10*3/uL (2.0-8.3); Neutrophils Percent Auto 45.3 % (45-73); Platelet Count 229 X10*3/uL (160-400); Red Blood Count 4.09 X10*6/uL (4.20-5.50); Red Cell Distribution Width 13.1 % (11.0-16.0); White Blood Count 4.8 X10*3/uL (4.8-10.8)
[2024-06-10 15:52] LABS: Estimated Average Glucose 100 mg/dL; Hemoglobin A1C 104.7209 umol/L; Hemoglobin A1c % 5.1 % (<6.0); Total Hemoglobin (HGBA1C) 3198.6163 umol/L
[2024-06-10 16:19] LABS: Anion Gap 10 (12-20)
[2024-06-10 16:23] LABS: Alanine Aminotransferase 19 U/L (0-31); Albumin Level 4.2 g/dL (3.5-5.0); Alkaline Phosphatase 68 U/L (39-117); Aspartate Amino Transferase 28 U/L (5-31); Bilirubin Total 0.4 mg/dL (0.0-1.0); Blood Urea Nitrogen 21 mg/dL (9-16); C Reactive Protein 0.56 mg/dL (< or = 0.50); Calcium 9.6 mg/dL (8.4-10.2); Carbon Dioxide 28 mmol/L (22-29); Chloride 102 mmol/L (96-108); Estimated Glomerular Filt Rate > 60; Glucose Random 84 mg/dL (60-115); Iron 46 mcg/dL (30-160); Percent Iron Saturation 18 % (15-50); Potassium 3.7 mmol/L (3.3-5.1); Sodium 136 mmol/L (135-145); Total Iron Binding Capacity 253 mcg/dL (228-428); Unsaturated Iron Binding 207 ug/dL
[2024-06-10 16:47] LABS: Ferritin 179 ng/mL (10-122); TSH reflex Free T4 5.65 uIU/mL (0.32-4.0); Vitamin D 25-OH Total 67.2 ng/mL (>30)
[2024-06-10 16:48] LABS: Folate > 20.0 ng/mL (> or = 4.0); Vitamin B12 774 pg/mL (200-900)
[2024-06-10 16:58] LABS: Insulin 3 uU/mL (2-29)
[2024-06-10 17:20] LABS: Free T4 (Free Thyroxine) 1.14 ng/dL (0.71-1.85)
[2024-06-14 15:08] LABS: Zinc 71 mcg/dL (60-130)
[2024-06-15 04:33] LABS: Vitamin A 26 mcg/dL (38-98)
[2024-06-16 16:53] LABS: Vitamin B1 30 nmol/L (8-30)
== END 2024-06-10 15:01 | disposition home or self-care (01) ==
LOC: HO.LAB 15:00
PROVIDERS: Visit Provider Surgery
DX: K91.2 Postsurgical malabsorption, not elsewhere classified (principal); Z90.3 Acquired absence of stomach [part of]
CPT/HCPCS: 36415; 80053; 82306; 82607; 82728; 82746; 83036; 83525; 83540; 84425; 84439; 84443; 84590; 84630; 85025; 86140

== ENCOUNTER 2024-06-12 08:34 | Outpatient (REF) | payer OTHER, SELFPAY ==
--- OUTSIDE RECORDS SUMMARY | 2024-06-12 08:37 | XMS_ITS | Clinical Summary ---
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; Anxiety; Obesity (BMI 30.0-34.9); S/P bariatric surgery; Vitamin D deficiency; Need for hepatitis C screening test; Constipation, unspecified constipation type from Last 3 Months Surgical History Surgery Date Site/Laterality Comments BARIATRIC SURGERY 02/04/2024 PROCEDURE: [place] LAPS GSTRC RSTRICTIV PX LONGITUDINAL GASTRECTOMY; COMMENT: done at [facility] Medical History Medical History Date Comments History of cellulitis 09/15/2015 DX:History of cellulitis; COMMENT: Elbow Eczema 09/15/2015 DX:Eczema Erythema migrans (Lyme disease) 09/19/2015 DX:Erythema migrans (Lyme disease) Vitamin D deficiency 03/10/2017 DX:Vitamin D deficiency Hypothyroidism 05/14/2017 DX:Hypothyroidis m Morbid obesity with BMI of 4 0.0-44.9, adult (CMS/HCC) 09/14/2015 DX:Morbid obesity with BMI o f 40.0-44.9, adult (HCC) Family History Medical History Relation Name Comments [...] 3:30 PM EDT Office Visit Adult Medicine [address] [address] Rosalia Grace PA [address] [place] [address] Health Maintenance Due Date Last Done Comments [...] * Annual BMP Blood Test (12/16/2022) Pathologist [facility] Annual BMP Blood Test abstracted Historical Provider MD MINA WOOTEN E * (ABNORMAL) Lipid panel (06/03/2020) Pathologist [facility] LDL/HDL Ratio 3 0 - 4 Triglycerides 41 0 - 150 mg/dL Cholesterol 196 0 - 200 mg/dL HDL 57 40 mg/dL LDL Cholesterol 131(A) 0 - 100 mg/dL Blood Venous blood specimen / Unknown Historical Provider LAB BLOOD ORDERAB LES from Last 3 Months or Most Recently Relevant to Health Maintenance Care Teams Bobbin Winder Tender Relationship Specialty Start Date End Date Val Palacio MD [address] [place] [address] PCP - General Internal Medicine 03/02/24
--- OUTSIDE RECORDS SUMMARY | 2024-06-12 08:37 | XMS_ITS | Clinical Summary ---
Author Organization [employer] Address [address] [place] [address] Care Team Providers Care Anthropology Lecturer Name Role Phone Danelle Bailey MD Unavailable Tosin Gómez NP Primary Care Provider +1- [phone] Allergies No known active allergies Medications Medication [...] Problem Noted Date Diagnosed Date Cervicalgia of fhpjznht-blzilgc-wejvb region 11/2021 Obesity (BMI 30-39.9) 02/15/2021 Intermittent [...] Guideline for Cervical Cancer Aptima (LCA = 077991) PAP ONLY NO STD SCREENING (08/02/2021 3:35 PM EDT) Age Gdln ACOG Testing 30-65 [facility] Swab 08/02/2021 3:35 PM EDT 08/03/2021 5:00 AM EDT Narrative [facility] - 08/08/2021 10:11 AM EDT Performed at: ??01 - [facility] [address] ??[id number] Content Administrator: Nacho Peraza MD, Phone: ??[phone] Specimen Comment: Source.............Endocervix Specimen Comment: No. of containers..01 ThinPrep Vial Tosin Gómez NP LAB CYTOLOGY ORDER MONIQUE [facility] from Last 3 Months or Most Recently Relevant to Health Maintenance Care Teams Anthropology Lecturer Relationship Specialty Start Date End Date Tosin Gómez NP [address] [place] [address] PCP - General Family Medicine 05/01/21 Danelle Bailey MD [address] [address] Consulting Physician Endocrinology 04/26/21
--- OUTSIDE RECORDS SUMMARY | 2024-06-12 08:37 | XMS_ITS | Encounter Summary ---
Author Organization [employer] Address [address] [place] [address] Care Team Providers Care Line Haul Truck Driver Name Role Phone Danelle Bailey MD Unavailable Tosin Gómez ENGAGEMENT MGR Primary Care Provider +1- [phone] Reason for Visit * Reason Comments Med Refill Encounter Details Date Type Department Care Team (Late st Contact Info) Description 08/28/[address] [address] Tosin Gómez NP [address] [place] [address] Situational anxiety Social History Tobacco Use Types [...] anxiety documented in this encounter Care Teams Line Haul Truck Driver Relationship Specialty Start Date End Date Tosin Gómez NP [address] [place] [address] PCP - General Family Medicine 05/01/21 Danelle Bailey MD [facility] [address] [address] Consulting Physician Endocrinology 04/26/21 documented as of this encounter
--- OUTSIDE RECORDS SUMMARY | 2024-06-12 08:37 | XMS_ITS | Encounter Summary ---
Author Organization [employer] Address [address] [place] [address] Care Team Providers Care Crown Buffer Name Role Phone Danelle Bailey MD Unavailable Tosin Gómez SENIOR INFRASTRUCTURE ARCHITECT Primary Care Provider [phone]- [phone] Reason for Visit * Reason Comments Med Refill Encounter Details Date Type Department Care Team (Late st Contact Info) Description 10/14/[address] [address] Tosin Gómez NP [address] [place] [address] Hypothyroidism, unspecified type Social History Tobacco Use [...] type documented in this encounter Care Teams Crown Buffer Relationship Specialty Start Date End Date Tosin Gómez NP [address] [place] [address] PCP - General Family Medicine 05/01/[address] [facility] [address] [address] Consulting Physician Endocrinology 04/26/21 documented as of this encounter
[2024-06-12 11:32] LABS: Cholesterol 181 mg/dL (<200); HDL Cholesterol 44 mg/dL (>40); LDL Cholesterol Calculated 127 mg/dL (<100); Triglycerides 50 mg/dL (<150)
== END 2024-06-12 08:35 | disposition home or self-care (01) ==
LOC: HO.LAB 08:34
PROVIDERS: Visit Provider Surgery
DX: K91.2 Postsurgical malabsorption, not elsewhere classified (principal); Z90.3 Acquired absence of stomach [part of]
CPT/HCPCS: 36415; 80061

== ENCOUNTER → 2024-06-14 14:15 | Outpatient (BNVA) | payer OTHER, SELFPAY | PROVIDERS: PCP Internal Medicine; Visit Provider Physician Assistant Surgical ==

== ENCOUNTER 2024-09-21 11:20 | Outpatient (AMB) | payer OTHER, SELFPAY ==
--- NOTE | 2024-09-21 11:13 | MHC.OFFVISWM ---
VS Expanded 09/21/24 11:17 Height 5 ft 4 in Weight 137 lb BMI 23.5 Intake Visit Reasons: TELEPHONE PO LSG 02/04/24 Goods Layer Name: Shelbi Gomez Allergies No Known Allergies Allergy (Verified 03/01/24 12:54) Medication List - Last Reconciled 09/21/24 by NANCY Maria hydroxyzine HCl 10 mg PO BEDTIME levothyroxine 125 mcg PO DAILY HPI Comments Details: This?is a?39?yo F who is s/p LSG 02/04/2024. Presents for 7 month post op visit. Weight at last visit on 06/14/2023 was 155 pounds; weight today is 137 pounds, representing a 18 pound weight loss with a BMI today of 23.5.? No complaints of nausea, emesis, abdominal pain or reflux, or constipation. Present meal plan includes: 2 shakes- 1 with 1 scoop, 1 with half scoop 1 protein bar 1 small meal protein/veg hydration is adequate Exercise routine includes: treadmill walking Pt reports some excess skin of arms and legs. No rashes currently. [facility] Medical History (Updated 06/10/24 @ 06:45 by David Michelle MD) Anxiety Obesity Hypothyroidism Morbid obesity Surgical History S/P laparoscopic sleeve gastrectomy History of esophagogastroduodenoscopy (EGD) Social History (Updated 03/01/24 @ 12:55 by Bethany Payton CMA) Household Members: Friend(s) Housing: Apartment Are you a primary career coordinator to a significant other at home: No Do you presently have visiting nurse or other home services: No Alcohol intake: current Alcohol intake frequency: does not drink Patient Tobacco Use Status: Former Tobacco user service: No Telehealth Telehealth Telehealth Platform: Telephone Location of provider rendering services: practice address Location of patient: address on file Patient Identification confirmed using: Name, : Yes Telehealth method: voice only Patient verbally consented to treatment: Yes Patient verbally consented to billing insurance company: Yes Patient informed of any privacy concerns related to visit: Yes Minutes spent on Phone/Video with Pt.: 17 Assessment & Plan Assessment & Plan (1) S/P laparoscopic sleeve gastrectomy: Code(s): Z98.84 - Bariatric surgery status Category: Surgical Plan Pt has done very well with weight loss, achieved a healthy BMI with over 100lbs weight loss. She reports fatigue is improved. She has an appt with PCP next month, will discuss elevated TSH at that time. If she experiences rashes over the summer when the weather is warmer she will take photos. RTC in early February for annual.
[2024-09-21 11:17] VITALS: BMI 23.5
--- OUTSIDE RECORDS SUMMARY | 2024-09-21 12:38 | XMS_ITS | Encounter Summary ---
Author Organization [facility] Address [address] [place] [address] Care Team Providers Care Bi Report Developer Name Role Phone Danelle Bailey MD Unavailable Tosin Gómez MERCHANT PATROLLER Primary Care Provider +1- [phone] Reason for Visit * Reason Comments Med Refill Encounter Details Date Type Department Care Team (Late st Contact Info) Description 10/14/[address] [address] Tosin Gómez NP [address] [place] [address] Hypothyroidism, unspecified type Social History Tobacco Use Types Packs/Day Years Used Date Smoking Tobacco: Former Smokeless Tobacco: Never Alcohol Use Standard Drinks/Week Comments Yes 0 (1 standard drink = 0.6 oz pur e alcohol) social PHQ-2 Answer Date Recorded Depression Risk (PHQ2) Score 1 08/2022 Comments No Sex and Gender Information Value Date Recorded Sex Assigned at Not on file Legal Sex Female 7:53 AM [facility] Gender Identity Not on file Sexual Orientation Not on file documented as of this encounter Plan of Treatment Not on file documented as of this encounter Visit Diagnoses Diagnosis Hypothyroidism, unspecified type documented in this encounter Care Teams Bi Report Developer Relationship Specialty Start Date End Date Tosin Gómez NP [address] [place] [address] PCP - General Family Medicine 05/01/21 [place] [address] [place] [address] Consulting Physician Endocrinology 04/26/21 documented as of this encounter
--- OUTSIDE RECORDS SUMMARY | 2024-09-21 12:38 | XMS_ITS | Encounter Summary ---
Author Organization [facility] Address [address] [place] [address] Care Team Providers Care Spool Hauler Name Role Phone Danelle Bailey MD Unavailable Tosin Gómez BIAS MACHINE OPERATOR Primary Care Provider [phone]- [phone] Reason for Visit * Reason Comments Med Refill Encounter Details Date Type Department Care Team (Late st Contact Info) Description 08/28/[address] [address] Tosin Gómez NP [address] [place] [address] Situational anxiety Social History Tobacco Use Types [...] on file Legal Sex Female 7:[address] [facility] Gender Identity Not on file Sexual Orientation Not on file documented as of this encounter Plan of Treatment Not on file documented as of this encounter Visit Diagnoses Diagnosis Situational anxiety documented in this encounter Care Teams Spool Hauler Relationship Specialty Start Date End Date Tosin Gómez NP [address] [place] [address] PCP - General Family Medicine 05/01/21 Danelle Bailey MD [facility] [address] [address] Consulting Physician Endocrinology 04/26/21 documented as of this encounter
--- OUTSIDE RECORDS SUMMARY | 2024-09-21 12:38 | XMS_ITS | Clinical Summary ---
Author Organization 175 [facility] Address [address] [place] [address] Phone Care Team Providers Care Inventory Planner Name Role Phone Val Palacio MD Primary Care Pr ovider Allergies No known active allergies Medications hydrOXYzine HCL (ATARAX) 10 mg tablet Take 1 Tablet by mouth at bedtime as needed (anxiety). 4 Active ondansetron (ZOFRAN) 4 mg tablet Take 4 mg by mouth every 12 hours as needed. Active sucralfate (CARAFATE) 100 mg/mL suspension Take 10 mL (1 g total) by mouth 4 (four) times a day. Active polyethylene glycol (MIRALAX) 17 gram packetIndications :Constipation, unspecified constipation type Take 17 g by mouth 1 (one) time each day if needed for constipation . 510 g 2 4 10/12/19 25 Active levothyroxine (SYNTHROID, LEVOTHROID) 125 mcg tablet TAKE 1 TABLET BY MOUTH EVERY DAY 90 tablet 1 4 Active Active Problems Problem Noted Date Diagnosed [...] since her surgery Continue follow up with [facility] weight management Anxiety 12/13/2022 Assessment & Plan [...] Erythema migrans (Lyme disease) 09/19/2015 Eczema 09/15/2015 Surgical History Surgery Date Site/Laterality Comments BARIATRIC SURGERY 02/04/2024 PROCEDURE: [place] LAPS GSTRC RSTRICTIV PX LONGITUDINAL GASTRECTOMY; COMMENT: done at [facility] Medical History Medical History Date Comments History of cellulitis 09/15/2015 DX:History of cellulitis; COMMENT: Elbow Eczema 09/15/2015 DX:Eczema Erythema migrans (Lyme disease) 09/19/2015 DX:Erythema migrans (Lyme disease) Vitamin D deficiency 03/10/2017 DX:Vitamin D deficiency Hypothyroidism 05/14/2017 DX:Hypothyroidis m Morbid obesity with BMI of 4 0.0-44.9, adult (CMS/HCC V24, CMS/HCC V28) 09/14/2015 DX:Morbid obesity wit h BMI of 40.0-44.9, adult ([facility]) Family History Medical History Relation Name Comments Diabetes Father Thyroid disease Mother Relation Name Status Comments Father Mother Social History Tobacco Use Types Packs/Day Years Used Date Smoking Tobacco: Some Days Smokeless Tobacco: Never Tobacco Cessation:Ready to Q uit: Not Asked; Counseling Given: Not Answered Alcohol Use Standard Drinks/Week Comments Yes 0 (1 standard drink = 0.6 oz pur e alcohol) Comments Unknown Sex and Gender Information Value Date Recorded Sex Assigned at Not on file Legal Sex Female 5:05 PM EST Gender Identity Not on file Sexual Orientation Not on file Obstetrics History Last Filed [...] 3:30 PM EDT Office Visit Adult Medicine [address] [address] Rosalia Grace PA [address] [place] [address] Health Maintenance Due Date Last Done Comments [...] patient's age to complete this topic Meningococcal B Vaccine Aged Out No l onger eligible based on patient's age to complete [...] * Annual BMP Blood Test (12/16/2022) Pathologist [facility] Annual BMP Blood Test abstracted Historical Provider HEALTH MAINTENANCE Final Result * (ABNORMAL) Lipid panel (06/03/2020) Pathologist [facility] LDL/HDL Ratio 3 0 - 4 Triglycerides 41 0 - 150 mg/dL Cholesterol 196 0 - 200 mg/dL HDL 57 >=40 mg/dL LDL Cholesterol 131(A) 0 - 100 mg/dL Blood Venous blood specimen / Unknown Historical Provider LAB BLOOD ORDERABLES Talya l Result from Last 3 Months or Most Recently Relevant to Health Maintenance Insurance [employer] Care Teams Inventory Planner Relationship Specialty Start Date End Date Val Palacio MD [address] [place] [address] PCP - General Internal Medicine 03/02/24
--- OUTSIDE RECORDS SUMMARY | 2024-09-21 12:38 | XMS_ITS | Clinical Summary ---
Author Organization [facility] Address [address] [place] [address] Care Team Providers Care Substation Manager Name Role Phone Danelle Bailey MD Unavailable Tosin Gómez HEALTH TECHNICIAN HEARING Primary Care Provider +1- [phone] Allergies No known active allergies Medications acetaminophen (TYLENOL) 500 mg tablet TAKE 2 TABLETS BY MOUTH EVERY 8 HOURS NEEDED FOR PAIN OR FEVER. 1 Active hydrOXYzine HCL (ATARAX) 10 mg tabletIndicatio ns:Situational anxiety,Annual physical exam Take 1 tablet (10 mg total) by mouth every 8 (eight) hours if needed for anxiety Take at bedtime if needed for anxiety, may cause drowsiness, do not drive or operate machinery until you know how this medication affects you 60 tablet 1 3 Active ergocalciferol (VITAMIN D-2) 1,250 mcg (50,000 unit) capsuleIndicati ons:Vitamin D deficiency Take 1 capsule (50,000 Units total) by mouth 1 (one) time per week X 8 weeks 8 capsule 3 Active levothyroxine (SYNTHROID) 125 mcg tablet PLEASE SEE ATTACHED FOR DETAILED DIRECTIONS 3 Active Active Problems Problem Noted Date Diagnosed Date Cervicalgia of qksiixyr-mzoskgp-mlhhz region 11/2021 Obesity (BMI 30-39.9) 02/15/2021 Intermittent palpitations 02/15/2021 Situational anxiety 02/15/2021 Hypothyroidism 01/04/2021 Resolved Problems Problem Noted Date Diagnosed Date Resolved Date Disease due to severe acute respiratory syndrome coronavirus 2 (SARS-CoV-2) 12/25/2020 04/0 07/2022 Family History Medical History Relation Comments Diabetes [...] on file Legal Sex Female 7:53 AM [facility] Gender Identity Not on file Sexual Orientation Not on file Last Filed Vital Signs [...] - 2023-2 5 season) 2024 Influenza Vaccine (Season Ended) 2025 Cervical Cancer Screening (Pap/HPV) 08/02/2026 08/02/2021, 08/02/2021 [...] Guideline for Cervical Cancer Aptima (LCA = 079169) PAP ONLY NO STD SCREENING (08/02/2021 3:35 PM EDT) Age Gdln ACOG Testing 30-65 [facility] Swab 08/02/2021 3:35 PM EDT 08/03/2021 5:00 AM EDT Narrative [facility] - 08/08/2021 10:11 AM EDT Performed at: ??01 - [facility] [address] ??[id number] Charm Filter Operator Helper: Nacho Peraza MD, Phone: ??[phone] Specimen Comment: Source.............Endocervix Specimen Comment: No. of containers..01 ThinPrep Vial Tosin Gómez NP LAB CYTOLOGY ORDERABLES Fi nal Result [facility] from Last 3 Months or Most Recently Relevant to Health Maintenance Insurance [employer] Care Teams Substation Manager Relationship Specialty Start Date End Date Tosin Gómez NP [address] [place] [address] PCP - General Family Medicine 05/01/21 Danelle Bailey MD [address] [place] [address] Consulting Physician Endocrinology 04/26/21
== END 2024-09-21 11:27 | disposition home or self-care (01) ==
LOC: HO.HBS 11:20
PROVIDERS: PCP Internal Medicine; Visit Provider Physician Assistant Surgical
DX: Z98.84 Bariatric surgery status (principal)
CPT/HCPCS: 98014

== ENCOUNTER → 2024-09-21 11:20 | Outpatient (BNVA) | payer OTHER, SELFPAY | PROVIDERS: PCP Internal Medicine; Visit Provider Physician Assistant Surgical ==

== ENCOUNTER 2025-02-09 09:22 | Outpatient (AMB) | payer OTHER, SELFPAY ==
--- NOTE | 2025-02-09 09:37 | MHC.OFFVISWM ---
VS Expanded 02/09/25 09:46 Height 5 ft 4 in Weight 126 lb 6.4 oz BMI 21.7 Body Fat % 19.5 Body Fat Mass 24.6 Fat Free Mass 101.6 Visceral Fat Rating 2.0 Body Water % 57.6 Body Water Mass 72.8 Muscle Mass/Score 6.6 Basal Metabolic Rate/Score 1,353 Intake Visit Reasons: OV PO LSG 02/04/24 Human Resources Leader Required: Yes Human Resources Leader Name: Fidelina Arauz Information Interpreted: clinical only Allergies No Known Allergies Allergy (Verified 02/09/25 09:47) Medication List - Last Reconciled 02/09/25 by NANCY Maria levothyroxine 125 mcg PO DAILY HPI Comments Details: This?is a?39?yo F who is s/p LSG 02/04/2024. Presents for 1yr post op visit. Weight loss of 8.6lb since last OV in September 2024.? No complaints of nausea, emesis, abdominal pain or reflux, or constipation. Present meal plan includes: 2 shakes- 1 with 1 scoop, 1 with half scoop 1 protein bar 1 small meal protein/veg hydration is adequate on occasion will have 2 meals instead, one meal replaced with a shake or bar Exercise routine includes: treadmill walking Pt reports some excess skin of arms and legs. No rashes currently. She is not presently interested in any procedures for this. Have you been diagnosed with reflux (GERD)? Score 0-5: 0=no symptoms, 1=noticeable but not bothersome (slight or occasional), 2=noticeable, bothersome but not daily, 3=bothersome and daily, 4=affects daily activities, 5=incapacitating, unable to do daily activities How bad is the heartburn: 0 Heartburn when lying down: 0 Heartburn when standing up: 0 Heartburn after meals: 0 Does heartburn change your diet: 0 Does heartburn wake you up from sleep: 0 Do you have difficulty swallowin Do you have pain with swallowin If you take medication for reflux, does this affect your daily life: 0 Total score: 0 PFSH Medical History (Updated 06/10/24 @ 06:45 by David Michelle MD) Anxiety Obesity Hypothyroidism Morbid obesity Surgical History S/P laparoscopic sleeve gastrectomy History of esophagogastroduodenoscopy (EGD) Social History Household Members: Friend(s) Housing: Apartment Are you a primary health care recruiter to a significant other at home: No Do you presently have visiting nurse or other home services: No Alcohol intake: current Alcohol intake frequency: does not drink Patient Tobacco Use Status: Former Tobacco user service: No Physical Exam Vital Signs: BMI result Body Mass Index 21.7 Assessment & Plan Assessment & Plan (1) S/P laparoscopic sleeve gastrectomy: Code(s): Z98.84 - Bariatric surgery status Category: Surgical Plan Pt has done very well achieving a healthy weight/BMI. Pt may consistently exchange one bar or shake for one meal of proten and veg or protein and fruit. Could also continue same meal plan and introduce healthy fat or healthy carbohydrate. Discussed the importance of continuing to get adequate protein intake each day. Gave healthy foods handout in portuguese. Labs ordered. RTC 6mo. Encouraged pt to text me with any questions or concerns between now and next visit. Orders: Orders C Reactive Protein Today Z98.84 - Bariatric surgery status Lipid Panel Today Z98.84 - Bariatric surgery status IRON PROFILE Today Z98.84 - Bariatric surgery status Insulin Today Z98.84 - Bariatric surgery status Complete Blood Count Auto Diff Today Z98.84 - Bariatric surgery status Comprehensive Met. Panel Today Z98.84 - Bariatric surgery status TSH reflex Free T4 Today Z98.84 - Bariatric surgery status Hemoglobin A1c Today Z98.84 - Bariatric surgery status Vitamin B12 and Folate Today Z98.84 - Bariatric surgery status Vitamin B1 Today Z98.84 - Bariatric surgery status Zinc Today Z98.84 - Bariatric surgery status Vitamin A Today Z98.84 - Bariatric surgery status Vitamin D 25-OH Total Today Z98.84 - Bariatric surgery status Ferritin Today Z98.84 - Bariatric surgery status
[2025-02-09 09:46] VITALS: BMI 21.7
== END 2025-02-09 10:24 | disposition home or self-care (01) ==
LOC: HO.HBS 09:23
PROVIDERS: PCP Internal Medicine; Visit Provider Physician Assistant Surgical
DX: Z71.3 Dietary counseling and surveillance (principal); Z98.84 Bariatric surgery status
CPT/HCPCS: 99213

== ENCOUNTER 2025-02-10 15:04 | Outpatient (REF) | payer OTHER, SELFPAY ==
[2025-02-10 15:25] LABS: MANUAL DIFF FLAG NO
[2025-02-10 15:45] LABS: Hematocrit 35.3 % (37.0-47.0); Hemoglobin 11.7 g/dl (12.0-16.0); Imm Gran Abs Auto 0.01 X10*3/uL (0.00-0.03); Imm Gran Pct Auto 0.2 % (0.0-0.4); Lymphocytes Absolute Auto 2.7 X10*3/uL (1.2-4.9); Mean Corpuscular HGB Conc 33.1 g/dl (31.0-35.0); Mean Corpuscular Hemoglobin 29.8 pg (27.0-33.0); Mean Corpuscular Volume 90.1 fL (80.0-98.0); NRBC Abs Auto 0.000 X10*3/uL (0.0-0.012); NRBC Pct Auto 0.0 /100WBC (0.0-0.2); Platelet Count 230 X10*3/uL (160-400); Red Blood Count 3.92 X10*6/uL (4.20-5.50); White Blood Count 5.1 X10*3/uL (4.8-10.8)
[2025-02-10 17:11] LABS: Folate > 20.0 ng/mL (> or = 4.0); Vitamin B12 872 pg/mL (200-900)
[2025-02-10 17:22] LABS: Alanine Aminotransferase 56 U/L (0-31); Albumin Level 4.4 g/dL (3.5-5.0); Alkaline Phosphatase 95 U/L (39-117); Anion Gap 12 (12-20); Aspartate Amino Transferase 44 U/L (5-31); Blood Urea Nitrogen 22 mg/dL (9-16); Calcium 9.3 mg/dL (8.4-10.2); Carbon Dioxide 29 mmol/L (22-29); Chloride 104 mmol/L (96-108); Cholesterol 155 mg/dL (<200); Estimated Glomerular Filt Rate > 60; Ferritin 126 ng/mL (10-122); HDL Cholesterol 66 mg/dL (>40); Iron 51 mcg/dL (30-160); Percent Iron Saturation 18 % (15-50); Potassium 3.7 mmol/L (3.3-5.1); Sodium 141 mmol/L (135-145); Total Iron Binding Capacity 290 mcg/dL (228-428); Total Protein 7.6 g/dL (6.5-8.0); Triglycerides 35 mg/dL (<150); Unsaturated Iron Binding 239 ug/dL
== END 2025-02-10 15:05 | disposition home or self-care (01) ==
LOC: HO.LAB 15:04
PROVIDERS: Visit Provider Physician Assistant Surgical
DX: Z13.6 Encounter for screening for cardiovascular disorders (principal); Z13.1 Encounter for screening for diabetes mellitus; Z98.84 Bariatric surgery status; Z13.29 Encounter for screening for other suspected endocrine disorder
CPT/HCPCS: 36415; 80053; 80061; 82306; 82607; 82728; 82746; 83036; 83525; 83540; 84425; 84443; 84590; 84630; 85025; 86140